=== PATIENT | male | born 1950 | race Caucasian/White ===

== ENCOUNTER 2016-02-23 17:40 | Inpatient (IN) | payer OTHER ==
[~2016-02-23] VITALS: Wt 163.7 kg
[2016-02-23 18:57] LABS: HEMATOCRIT 31.5 % (38.0-50.0); MCH 26.4 PG (29.0-34.0); MCHC 30.2 G/DL (30.0-36.0); MCV 87.5 FL (86-99); MEAN PLAT.VOLUME 8.1 uM^3 (9.0-12.4); PLATELET COUNT 79 K/uL (156-360); RBC DIS.WIDTH-CV 16.3 % (11.8-14.6); RBC DIS.WIDTH-SD 51.4 % (39-53)
[2016-02-23 19:04] LABS: WHITE BLOOD COUNT 5.6 K/uL (4.1-10.2)
[2016-02-23 19:09] LABS: CHLORIDE 113 mEq/L (99-109); POTASSIUM 3.7 mEq/L (3.7-5.4); SODIUM 148 mEq/L (136-147)
[2016-02-23 19:11] LABS: GLUCOSE 100 mg/dL (70-99)
[2016-02-23 19:12] LABS: ANION GAP 9 MEQ/L (2-14)
[2016-02-23 19:13] LABS: TOTAL BILIRUBIN 0.3 mg/dL (0.0-1.0)
[2016-02-23 19:14] LABS: ALKALINE PHOSPHATASE 56 IU/L (3-129)
[2016-02-23 19:15] LABS: GFR ESTIMATE (CALCULATED) 43 mL/min/
[2016-02-23 19:16] LABS: UREA NITROGEN (BUN) 28 mg/dL (9-23)
[2016-02-23 19:18] LABS: TROP-I INTERPRETATION NEGATIVE; TROPONIN-I 0.18 ng/mL (0.0-0.30)
[2016-02-23 19:28] LABS: BASOPHIL COUNT 0.1 K/uL (0-0.1); EOSINOPHIL (%) 5.7 % (0-5); EOSINOPHIL COUNT 0.3 K/uL (0-0.3); IMMATURE GRANULOCYTE (%) 0.4 % (0.0-0.7); IMMATURE GRANULOCYTE COUNT 0.2 K/uL; LYMPHOCYTE COUNT 1.6 K/uL (1.0-2.8); MONOCYTE (%) 7.5 % (3-12); MONOCYTE COUNT 0.4 K/uL (0-0.8); NEUTROPHIL (%) 56.9 % (45-76); NEUTROPHIL COUNT 3.2 K/uL (1.8-6.4)
[2016-02-23 21:45] LABS: ADD MIUA? YES; BILIRUBIN SMALL; BLOOD NEGATIVE; COLOR YELLOW ((YELLOW)); GLUCOSE (STRIP) NEGATIVE; KETONES NEGATIVE; LEUKOCYTES NEGATIVE; NITRITE NEGATIVE; PROTEIN (STRIP) 100; SPECIFIC GRAVITY 1.018 (1.000-1.030); UROBILINOGEN 0.2 MG/DL (0.2-1.0)
[2016-02-23 22:34] LABS: C-REACTIVE PROTEIN 72.1 MG/L (0-10)
[2016-02-23 22:36] LABS: AMORPHOUS PHOSPHATE CRYSTALS 4+; BACTERIA 3+; CASTS NONE SEEN /LPF; CRYSTALS PRESENT; EPITHELIAL CELLS RARE; MUCUS NONE SEEN; RED BLOOD CELLS 0-5 /HPF (0-5); UCUL ADDED? NO; WHITE BLOOD CELLS 0-5 /HPF (0-5)
[2016-02-23] MEDS ORDERED: ATORVASTATIN CA40 MG PO (22:57)
[2016-02-23] MEDS ORDERED: ACIDOPHILUS1 EAC5 PO (22:57)
[2016-02-23] MEDS ORDERED: ERGOCALCIF50000 UNIT PO (22:58)
[2016-02-23] MEDS ORDERED: FISH OIL 1,0001 EAC7 PO (22:59)
[2016-02-23] MEDS ORDERED: FLUOXETINE HCL20 M1 PO (22:59)
[2016-02-23] MEDS ORDERED: CRANBERRY 4001 EAC1 PO (22:59)
[2016-02-23] MEDS ORDERED: FERROUS GLUCON324 MG PO (22:59)
[2016-02-23] MEDS ORDERED: LANTUS 3 M100 UNITS1 SC (23:00)
[2016-02-23] MEDS ORDERED: GENTIAN VIOLET TP (23:00)
[2016-02-23] MEDS ORDERED: LOSARTAN POTAS100 MG PO (23:01)
[2016-02-23] MEDS ORDERED: LATANOPROST2.5 ML BOTH EYES (23:01)
[2016-02-23] MEDS ORDERED: ONE-A-DAY ESSE1 EAC1 PO (23:01)
[2016-02-23] MEDS ORDERED: NORVASC10 MG PO (23:02)
[2016-02-23] MEDS ORDERED: SENNA PLUS TAB1 EACH PO (23:02)
[2016-02-23] MEDS ORDERED: B COMPLETE1 EACH PO (23:02)
[2016-02-23] MEDS ORDERED: ZINC SULFATE220 M1 PO (23:02)
[2016-02-23] MEDS ORDERED: PROTONIX40 MG PO (23:02)
[2016-02-23] MEDS ORDERED: FERROUS SULFAT325 MG PO (23:03)
[2016-02-23] MEDS ORDERED: LASIX40 MG PO (23:03)
[2016-02-23] MEDS ORDERED: CARVEDILOL12.5 MG PO (23:03)
[2016-02-23] MEDS ORDERED: HYDRALAZINE HC100 MG PO (23:04)
[2016-02-23] MEDS ORDERED: DAIRY RELIE3000 UNIT PO (23:04)
[2016-02-23] MEDS ORDERED: TRAMADOL HCL50 MG PO (23:05)
[2016-02-23] MEDS ORDERED: LYRICA100 MG PO (23:05)
[2016-02-23] MEDS ORDERED: BENADRYL25 MG PO (23:05)
[2016-02-23] MEDS ORDERED: NOVOLOG PE100 UNITS/ SC (23:05)
[2016-02-23] MEDS ORDERED: HYDROXYZINE PAM25 MG PO (23:06)
[2016-02-23] MEDS ORDERED: DULCOLAX10 MG PR (23:06)
[2016-02-23] MEDS ORDERED: FLONASE16 G1 BOTH NARES (23:06)
[2016-02-23] MEDS ORDERED: FLEET ENEMA-AD118 ML PR (23:06)
[2016-02-23] MEDS ORDERED: PHILLIPS'400 MG/5 M PO (23:07)
[2016-02-23] MEDS ORDERED: NITROSTAT0.4 MG SL (23:07)
[2016-02-23] MEDS ORDERED: ZOFRAN4 MG PO (23:09)
[2016-02-23] MEDS ORDERED: TYLENOL REGULA325 MG PO (23:09)
[2016-02-24 08:49] LABS: ANION GAP 8 MEQ/L (2-14); CHLORIDE 114 MEQ/L (99-109); GFR ESTIMATE (CALCULATED) 40 mL/min/; GLUCOSE 103 mg/dL (70-99); POTASSIUM 3.6 MEQ/L (3.7-5.4); SAMPLE HEMOLYSIS CHECK 0; SAMPLE ICTERIC CHECK 0; SAMPLE LIPEMIA CHECK 0; SODIUM 150 MEQ/L (136-147); UREA NITROGEN (BUN) 30 mg/dL (9-23)
[2016-02-24 12:10] LABS: TROP-I INTERPRETATION NEGATIVE; TROPONIN-I 0.29 ng/mL (0.0-0.30)
[2016-02-24 17:24] VITALS: BP 142/66
[2016-02-24 20:29] VITALS: BP 183/84
[2016-02-24 21:49] LABS: METH RESISTANT S AUREUS PCR POSITIVE (NEGATIVE)
[2016-02-24 22:11] LABS: PROBE CHECK PASS
[2016-02-24 22:16] LABS: POINT-OF-CARE METER ID UU14149397
[2016-02-25 00:04] VITALS: BP 152/70
[2016-02-25 04:15] VITALS: BP 148/72
[2016-02-25 07:02] LABS: HEMATOCRIT 31.2 % (38.0-50.0); MCH 26.6 PG (29.0-34.0); MCHC 30.1 G/DL (30.0-36.0); MCV 88.1 FL (86-99); MEAN PLAT.VOLUME 8.7 uM^3 (9.0-12.4); PLATELET COUNT 64 K/uL (156-360); RBC DIS.WIDTH-CV 16.4 % (11.8-14.6); RBC DIS.WIDTH-SD 52.9 % (39-53); RED BLOOD COUNT 3.54 M/uL (4.00-5.50)
[2016-02-25 07:15] LABS: WHITE BLOOD COUNT 7.8 K/uL (4.1-10.2)
[2016-02-25 07:18] LABS: ALKALINE PHOSPHATASE 54 IU/L (3-129); ANION GAP 8 MEQ/L (2-14); CHLORIDE 110 MEQ/L (99-109); GFR ESTIMATE (CALCULATED) 36 mL/min/; GLUCOSE 134 mg/dL (70-99); SAMPLE HEMOLYSIS CHECK 0; SAMPLE ICTERIC CHECK 0; SAMPLE LIPEMIA CHECK 0; SODIUM 144 MEQ/L (136-147); TOTAL BILIRUBIN 0.3 MG/DL (0.0-1.0); UREA NITROGEN (BUN) 32 mg/dL (9-23)
[2016-02-25 07:48] LABS: POINT-OF-CARE METER ID UU14149397
[2016-02-25 08:18] VITALS: BP 100/40
[2016-02-25 11:30] VITALS: BP 130/40
[2016-02-25 11:31] LABS: POINT-OF-CARE METER ID UU14149397
[2016-02-25 15:30] VITALS: BP 100/50
[2016-02-25 15:49] LABS: POINT-OF-CARE METER ID UU14149397
[2016-02-25 20:18] VITALS: BP 147/68
[2016-02-26] VITALS (7 sets, daily range): BP systolic 100–170; BP diastolic 50–74
[2016-02-27 03:43] VITALS: BP 141/70
[2016-02-27 05:49] LABS: HEMATOCRIT 25.1 % (38.0-50.0); MCH 26.7 PG (29.0-34.0); MCHC 31.1 G/DL (30.0-36.0); MEAN PLAT.VOLUME 8.8 uM^3 (9.0-12.4); PLATELET COUNT 62 K/uL (156-360); RBC DIS.WIDTH-CV 16.1 % (11.8-14.6); RBC DIS.WIDTH-SD 50.3 % (39-53); RED BLOOD COUNT 2.92 M/uL (4.00-5.50)
[2016-02-27 05:50] LABS: WHITE BLOOD COUNT 4.5 K/uL (4.1-10.2)
[2016-02-27 06:01] LABS: ANION GAP 6 MEQ/L (2-14); CHLORIDE 113 MEQ/L (99-109); GFR ESTIMATE (CALCULATED) 43 mL/min/; GLUCOSE 160 mg/dL (70-99); POTASSIUM 3.8 MEQ/L (3.7-5.4); SAMPLE HEMOLYSIS CHECK 0; SAMPLE ICTERIC CHECK 0; SAMPLE LIPEMIA CHECK 0; SODIUM 147 MEQ/L (136-147); UREA NITROGEN (BUN) 32 mg/dL (9-23)
[2016-02-27 07:37] VITALS: BP 142/68
[2016-02-27 11:50] VITALS: BP 142/95
[2016-02-27 14:10] LABS: UR CREATININE CONCENTRATION 64.1 MG/DL
[2016-02-27 16:24] VITALS: BP 159/72
[2016-02-27 19:41] VITALS: BP 170/79
[2016-02-27 21:39] LABS: POINT-OF-CARE METER ID UU14149397
[2016-02-27 23:59] VITALS: BP 172/84
[2016-02-28 03:55] VITALS: BP 150/69
[2016-02-28 06:17] LABS: EOSINOPHIL (%) 16.6 % (0-5); HEMATOCRIT 28.2 % (38.0-50.0); IMMATURE GRANULOCYTE COUNT 0.1 K/uL; LYMPHOCYTE COUNT 1.2 K/uL (1.0-2.8); MCH 26.9 PG (29.0-34.0); MCHC 31.2 G/DL (30.0-36.0); MCV 86.2 FL (86-99); MEAN PLAT.VOLUME 8.5 uM^3 (9.0-12.4); MONOCYTE (%) 9.2 % (3-12); MONOCYTE COUNT 0.5 K/uL (0-0.8); NEUTROPHIL (%) 51.7 % (45-76); RBC DIS.WIDTH-CV 16.5 % (11.8-14.6); RBC DIS.WIDTH-SD 51.1 % (39-53); RED BLOOD COUNT 3.27 M/uL (4.00-5.50)
[2016-02-28 06:22] LABS: PLATELET COUNT 95 K/uL (156-360); WHITE BLOOD COUNT 5.9 K/uL (4.1-10.2)
[2016-02-28 06:34] LABS: POINT-OF-CARE METER ID UU14149397
[2016-02-28 06:46] LABS: ALKALINE PHOSPHATASE 63 IU/L (3-129); ANION GAP 6 MEQ/L (2-14); CHLORIDE 111 MEQ/L (99-109); GFR ESTIMATE (CALCULATED) 59 mL/min/; MAGNESIUM 1.8 mg/dl (1.3-2.7); POTASSIUM 3.5 MEQ/L (3.7-5.4); SAMPLE HEMOLYSIS CHECK 0; SAMPLE ICTERIC CHECK 0; SAMPLE LIPEMIA CHECK 0; SODIUM 147 MEQ/L (136-147); TOTAL BILIRUBIN 0.3 MG/DL (0.0-1.0); UREA NITROGEN (BUN) 24 mg/dL (9-23); URIC ACID 6.1 mg/dL (3.1-9.2)
[2016-02-28 06:50] LABS: GLUCOSE 104 mg/dL (70-99)
[2016-02-28 07:34] VITALS: BP 193/86
[2016-02-28 07:37] LABS: HEMATOLOGY COMMENT 1 SMEAR COMPATIBLE
[2016-02-28 07:43] VITALS: BP 184/80
[2016-02-28 17:15] VITALS: BP 162/82
[2016-02-28 21:27] LABS: POINT-OF-CARE METER ID UU14149397
[2016-02-28 23:48] VITALS: BP 173/84
[2016-02-29 06:34] LABS: POINT-OF-CARE METER ID UU14149397
[2016-02-29 07:00] VITALS: BP 167/68
[2016-02-29 07:12] LABS: ANION GAP 9 MEQ/L (2-14); CHLORIDE 111 MEQ/L (99-109); GFR ESTIMATE (CALCULATED) > 59 mL/min/; GLUCOSE 78 mg/dL (70-99); MAGNESIUM 1.7 mg/dl (1.3-2.7); POTASSIUM 3.7 MEQ/L (3.7-5.4); SAMPLE HEMOLYSIS CHECK 0; SAMPLE ICTERIC CHECK 0; SAMPLE LIPEMIA CHECK 0; SODIUM 148 MEQ/L (136-147); UREA NITROGEN (BUN) 19 mg/dL (9-23)
[2016-02-29 08:34] LABS: EOSINOPHIL (%) 13.5 % (0-5); EOSINOPHIL COUNT 1.1 K/uL (0-0.3); HEMATOCRIT 27.8 % (38.0-50.0); IMMATURE GRANULOCYTE (%) 2.7 % (0.0-0.7); IMMATURE GRANULOCYTE COUNT 0.2 K/uL; LYMPHOCYTE COUNT 1.6 K/uL (1.0-2.8); MCH 25.8 PG (29.0-34.0); MCHC 30.6 G/DL (30.0-36.0); MCV 84.5 FL (86-99); MEAN PLAT.VOLUME 8.3 uM^3 (9.0-12.4); MONOCYTE (%) 9.4 % (3-12); MONOCYTE COUNT 0.7 K/uL (0-0.8); NEUTROPHIL (%) 53.7 % (45-76); NEUTROPHIL COUNT 4.2 K/uL (1.8-6.4); PLATELET COUNT 92 K/uL (156-360); RBC DIS.WIDTH-CV 16.5 % (11.8-14.6); RBC DIS.WIDTH-SD 50.1 % (39-53); RED BLOOD COUNT 3.29 M/uL (4.00-5.50)
[2016-02-29 08:37] LABS: WHITE BLOOD COUNT 7.8 K/uL (4.1-10.2)
[2016-02-29 09:11] LABS: HEMATOLOGY COMMENT 1 SMEAR COMPATIBLE; USER ID STC
[2016-02-29 15:29] VITALS: BP 171/77
[2016-02-29 17:00] LABS: POINT-OF-CARE METER ID UU14149397
[2016-02-29 22:37] LABS: POINT-OF-CARE METER ID UU14149397
[2016-03-01 00:06] VITALS: BP 127/80
[2016-03-01 06:46] LABS: HEMATOCRIT 27.3 % (38.0-50.0); MCH 26.2 PG (29.0-34.0); MCHC 31.5 G/DL (30.0-36.0); MCV 83.2 FL (86-99); RBC DIS.WIDTH-SD 46.3 % (39-53); RED BLOOD COUNT 3.28 M/uL (4.00-5.50); WHITE BLOOD COUNT 7.4 K/uL (4.1-10.2)
[2016-03-01 06:49] LABS: MEAN PLAT.VOLUME 8.3 uM^3 (9.0-12.4)
[2016-03-01 06:55] LABS: PLATELET COUNT 138 K/uL (156-360)
[2016-03-01 07:06] LABS: POINT-OF-CARE METER ID UU14149397
[2016-03-01 07:37] VITALS: BP 137/80
[2016-03-01 07:45] LABS: ANION GAP 11 MEQ/L (2-14); CHLORIDE 107 MEQ/L (99-109); EOSINOPHIL (%) 14.9 % (0-5); EOSINOPHIL COUNT 1.1 K/uL (0-0.3); GFR ESTIMATE (CALCULATED) > 59 mL/min/; GLUCOSE 96 mg/dL (70-99); IMMATURE GRANULOCYTE (%) 2.3 % (0.0-0.7); IMMATURE GRANULOCYTE COUNT 1.7 K/uL; LYMPHOCYTE COUNT 1.4 K/uL (1.0-2.8); MONOCYTE (%) 9.5 % (3-12); MONOCYTE COUNT 0.7 K/uL (0-0.8); NEUTROPHIL (%) 53.4 % (45-76); NEUTROPHIL COUNT 3.9 K/uL (1.8-6.4); POTASSIUM 3.5 MEQ/L (3.7-5.4); SAMPLE HEMOLYSIS CHECK 0; SAMPLE ICTERIC CHECK 0; SAMPLE LIPEMIA CHECK 0; SODIUM 148 MEQ/L (136-147); UREA NITROGEN (BUN) 17 mg/dL (9-23)
[2016-03-01 08:44] LABS: HEMATOLOGY COMMENT 1 SMEAR COMPATIBLE; USER ID STC
[2016-03-01 12:35] VITALS: BP 196/95
[2016-03-01 16:06] VITALS: BP 160/80
[2016-03-01 22:14] LABS: POINT-OF-CARE METER ID UU14149397
[2016-03-01 23:35] VITALS: BP 188/81
[2016-03-02 06:32] LABS: ANION GAP 3 MEQ/L (2-14); CHLORIDE 107 MEQ/L (99-109); GFR ESTIMATE (CALCULATED) > 59 mL/min/; GLUCOSE 92 mg/dL (70-99); POTASSIUM 3.7 MEQ/L (3.7-5.4); SAMPLE HEMOLYSIS CHECK 0; SAMPLE ICTERIC CHECK 0; SAMPLE LIPEMIA CHECK 0; SODIUM 145 MEQ/L (136-147); UREA NITROGEN (BUN) 15 mg/dL (9-23)
[2016-03-02 07:07] LABS: POINT-OF-CARE METER ID UU14149397
[2016-03-02 11:44] LABS: POINT-OF-CARE METER ID UU14149397
[2016-03-02 15:56] VITALS: BP 143/67
[2016-03-02 16:12] LABS: POINT-OF-CARE METER ID UU14149397
[2016-03-02 23:49] VITALS: BP 120/59
[2016-03-03 04:17] VITALS: BP 129/68
[2016-03-03 07:56] VITALS: BP 177/74
[2016-03-03] MEDS ORDERED: DOXYCYCLINE HY100 M3 PO (08:13)
[2016-03-03] MEDS ORDERED: LOSARTAN POTASS25 MG PO (08:13)
[2016-03-03] MEDS ORDERED: CARVEDILOL25 MG PO (08:13)
[2016-03-03] MEDS ORDERED: FUROSEMIDE20 MG PO (08:13)
[2016-03-03 12:09] LABS: POINT-OF-CARE METER ID UU14149397
[2016-03-03 16:01] LABS: POINT-OF-CARE METER ID UU14149397
== END 2016-03-03 16:38 | DRG 602 ==
LOC: EME 17:40 → EDOF 22:52 → 3EAST 22:52 → EDOF 02-24 10:49 → 3EAST 02-24 17:14
PROVIDERS: Emergency Medicine; Internal Medicine; Internal Medicine Nephrology
DX: L03.116 Cellulitis of left lower limb (principal); N17.0 Acute kidney failure with tubular necrosis; L89.312 Pressure ulcer of right buttock, stage 2; L89.322 Pressure ulcer of left buttock, stage 2; L89.623 Pressure ulcer of left heel, stage 3; E11.22 Type 2 diabetes mellitus with diabetic chronic kidney disease; D69.6 Thrombocytopenia, unspecified; E11.42 Type 2 diabetes mellitus with diabetic polyneuropathy; E66.01 Morbid (severe) obesity due to excess calories; I12.9 Hypertensive chronic kidney disease with stage 1 through stage 4 chronic kidney disease, or unspecified chronic kidney disease; I89.0 Lymphedema, not elsewhere classified; R41.82 Altered mental status, unspecified; I89.8 Other specified noninfective disorders of lymphatic vessels and lymph nodes; I87.2 Venous insufficiency (chronic) (peripheral); B95.62 Methicillin resistant Staphylococcus aureus infection as the cause of diseases classified elsewhere; B96.89 Other specified bacterial agents as the cause of diseases classified elsewhere; K21.9 Gastro-esophageal reflux disease without esophagitis; M86.672 Other chronic osteomyelitis, left ankle and foot; Z89.422 Acquired absence of other left toe(s); E78.5 Hyperlipidemia, unspecified; N18.3 Chronic kidney disease, stage 3 (moderate); D36.7 Benign neoplasm of other specified sites; D64.9 Anemia, unspecified; Z87.891 Personal history of nicotine dependence; Z68.42 Body mass index [BMI] 45.0-49.9, adult; H40.9 Unspecified glaucoma; J30.9 Allergic rhinitis, unspecified; F60.3 Borderline personality disorder; R80.9 Proteinuria, unspecified; N28.1 Cyst of kidney, acquired; B99.8 Other infectious disease
CPT/HCPCS: 70450; 71010; 76770; 80048; 80053; 80202; 81003; 82565; 82570; 82948; 83605; 83735; 83880; 84100; 84156; 84484; 84550; 85025; 85025 91; 85027; 85651; 86140; 87040; 87070; 87075; 87077; 87106; 87147; 87186; 87205; 87641; 93005; 94799; 99281; 99285; J1650; J1815; J1940; J2543; J3370; J7030; J7050

== ENCOUNTER 2016-04-09 13:40 | Inpatient (IN) | payer OTHER ==
[~2016-04-09] VITALS: Ht 188 cm; Wt 164.0 kg
[~2016-04-09 13:40] MED LIST: ACIDOPHILUS1 EAC5 PO; ATORVASTATIN CA40 MG PO; B COMPLETE1 EACH PO; BENADRYL25 MG PO; CARVEDILOL12.5 MG PO; CARVEDILOL25 MG PO; CRANBERRY 4001 EAC1 PO; DAIRY RELIE3000 UNIT PO; DOXYCYCLINE HY100 M3 PO; DULCOLAX10 MG PR; ERGOCALCIF50000 UNIT PO; FERROUS GLUCON324 MG PO; FERROUS SULFAT325 MG PO; FISH OIL 1,0001 EAC7 PO; FLEET ENEMA-AD118 ML PR; FLONASE16 G1 BOTH NARES; FLUOXETINE HCL20 M1 PO; FUROSEMIDE20 MG PO; GENTIAN VIOLET TP; HYDRALAZINE HC100 MG PO; HYDROXYZINE PAM25 MG PO; LANTUS 3 M100 UNITS1 SC; LASIX40 MG PO; LATANOPROST2.5 ML BOTH EYES; LOSARTAN POTAS100 MG PO; LOSARTAN POTASS25 MG PO; LYRICA100 MG PO; NITROSTAT0.4 MG SL; NORVASC10 MG PO; NOVOLOG PE100 UNITS/ SC; ONE-A-DAY ESSE1 EAC1 PO; PHILLIPS'400 MG/5 M PO; PROTONIX40 MG PO; SENNA PLUS TAB1 EACH PO; TRAMADOL HCL50 MG PO; TYLENOL REGULA325 MG PO; ZINC SULFATE220 M1 PO; ZOFRAN4 MG PO
[2016-04-09 14:53] LABS: HEMATOCRIT 24.5 % (38.0-50.0); MCH 25.8 PG (29.0-34.0); MCV 83.1 FL (86-99); MEAN PLAT.VOLUME 8.1 uM^3 (9.0-12.4); PLATELET COUNT 134 K/uL (156-360); RBC DIS.WIDTH-CV 16.7 % (11.8-14.6); RBC DIS.WIDTH-SD 48.6 % (39-53); RED BLOOD COUNT 2.95 M/uL (4.00-5.50); WHITE BLOOD COUNT 7.5 K/uL (4.1-10.2)
[2016-04-09 15:02] LABS: CHLORIDE 108 mEq/L (99-109); POTASSIUM 4.7 mEq/L (3.7-5.4); SODIUM 143 mEq/L (136-147)
[2016-04-09 15:03] LABS: GLUCOSE 242 mg/dL (70-99)
[2016-04-09 15:05] LABS: ANION GAP 8 MEQ/L (2-14)
[2016-04-09 15:07] LABS: GFR ESTIMATE (CALCULATED) 34 mL/min/
[2016-04-09 15:08] LABS: D-DIMER ELISA 1.44 mg/L FEU (< 0.57); INTER. NORMALIZED RATIO 1.2; PTT 44.1 (25-32); UREA NITROGEN (BUN) 31 mg/dL (9-23)
[2016-04-09 15:14] LABS: TROP-I INTERPRETATION NEGATIVE; TROPONIN-I 0.01 ng/mL (0.0-0.30)
[2016-04-09] MEDS ORDERED: DOMEBORO TP (16:47)
[2016-04-09] MEDS ORDERED: FISH OIL 1,0001 EA11 PO (16:47)
[2016-04-09] MEDS ORDERED: LOSARTAN POTASS25 MG PO (16:50)
[2016-04-09] MEDS ORDERED: NORVASC10 MG PO (16:51)
[2016-04-09] MEDS ORDERED: OMEPRAZOLE20 M2 PO (16:52)
[2016-04-09] MEDS ORDERED: HEP LOCK F IV (17:03)
[2016-04-09] MEDS ORDERED: LASIX20 MG PO (17:04)
[2016-04-09] MEDS ORDERED: MUCINEX DM ER1 EACH PO (17:06)
[2016-04-09] MEDS ORDERED: SALINE FLUSH 5 M5 ML IV (17:09)
[2016-04-09] MEDS ORDERED: LYRICA100 MG PO (17:10)
[2016-04-09] MEDS ORDERED: DAIRY RELIE3000 UNIT PO (17:10)
[2016-04-09] MEDS ORDERED: GLUCAGON1 MG IM (17:15)
[2016-04-09] MEDS ORDERED: GLUTOSE 1537.5 GM PO (17:16)
[2016-04-09] MEDS ORDERED: HYDROXYZINE HCL25 MG PO (17:16)
[2016-04-09] MEDS ORDERED: MILK OF MAGN PO (17:17)
[2016-04-09] MEDS ORDERED: NITROSTAT0.4 MG SL (17:17)
[2016-04-09] MEDS ORDERED: NORCO 5/3251 TABLET PO (17:18)
[2016-04-09] MEDS ORDERED: ROBITUSSIN DM118 ML PO (17:18)
[2016-04-09 20:12] VITALS: BP 160/74
[2016-04-10] VITALS (11 sets, daily range): BP systolic 108–175; BP diastolic 58–77
[2016-04-10 07:45] LABS: POINT-OF-CARE METER ID UU13113781
[2016-04-10 08:23] LABS: HEMATOCRIT 29.3 % (38.0-50.0); MCH 25.6 PG (29.0-34.0); MCHC 31.1 G/DL (30.0-36.0); MCV 82.3 FL (86-99); MEAN PLAT.VOLUME 8.3 uM^3 (9.0-12.4); PLATELET COUNT 118 K/uL (156-360); RBC DIS.WIDTH-CV 16.5 % (11.8-14.6); RBC DIS.WIDTH-SD 49.6 % (39-53); WHITE BLOOD COUNT 7.6 K/uL (4.1-10.2)
[2016-04-10 08:24] LABS: RED BLOOD COUNT 3.56 M/uL (4.00-5.50)
[2016-04-10 08:47] LABS: ALKALINE PHOSPHATASE 63 IU/L (3-129); ANION GAP 9 MEQ/L (2-14); CHLORIDE 108 MEQ/L (99-109); GFR ESTIMATE (CALCULATED) 40 mL/min/; GLUCOSE 149 mg/dL (70-99); POTASSIUM 4.6 MEQ/L (3.7-5.4); SAMPLE HEMOLYSIS CHECK 0; SAMPLE ICTERIC CHECK 0; SAMPLE LIPEMIA CHECK 0; SODIUM 146 MEQ/L (136-147); UREA NITROGEN (BUN) 28 mg/dL (9-23)
[2016-04-10 08:51] LABS: TOTAL BILIRUBIN 0.5 MG/DL (0.0-1.0)
[2016-04-10 10:03] LABS: METH RESISTANT S AUREUS PCR NEGATIVE (NEGATIVE)
[2016-04-10 10:06] LABS: PROBE CHECK PASS; SPECIMEN PROCESSING CONTROL PASS
[2016-04-10 11:39] LABS: POINT-OF-CARE METER ID UU13113781
[2016-04-10 16:44] LABS: POINT-OF-CARE METER ID UU14174216
[2016-04-10 21:12] LABS: POINT-OF-CARE METER ID UU13113781
[2016-04-11 03:48] VITALS: BP 156/77
[2016-04-11 06:54] LABS: MCH 25.1 PG (29.0-34.0); MCHC 30.7 G/DL (30.0-36.0); MCV 81.9 FL (86-99); MEAN PLAT.VOLUME 8.4 uM^3 (9.0-12.4); PLATELET COUNT 117 K/uL (156-360); RBC DIS.WIDTH-CV 16.7 % (11.8-14.6); RBC DIS.WIDTH-SD 50.1 % (39-53); RED BLOOD COUNT 3.54 M/uL (4.00-5.50)
[2016-04-11 07:29] LABS: ALKALINE PHOSPHATASE 59 IU/L (3-129); ANION GAP 11 MEQ/L (2-14); CHLORIDE 110 MEQ/L (99-109); GFR ESTIMATE (CALCULATED) 43 mL/min/; GLUCOSE 115 mg/dL (70-99); POTASSIUM 4.2 MEQ/L (3.7-5.4); SAMPLE HEMOLYSIS CHECK 0; SAMPLE ICTERIC CHECK 0; SAMPLE LIPEMIA CHECK 0; SODIUM 149 MEQ/L (136-147); TOTAL BILIRUBIN 0.4 MG/DL (0.0-1.0); UREA NITROGEN (BUN) 23 mg/dL (9-23)
[2016-04-11 17:00] VITALS: BP 129/80
[2016-04-11 20:00] VITALS: BP 172/76
[2016-04-12 03:35] VITALS: BP 166/73
[2016-04-12 07:14] VITALS: BP 134/60
[2016-04-12 07:22] LABS: HEMATOCRIT 26.9 % (38.0-50.0); MCH 25.8 PG (29.0-34.0); MCHC 31.2 G/DL (30.0-36.0); MCV 82.5 FL (86-99); MEAN PLAT.VOLUME 8.7 uM^3 (9.0-12.4); PLATELET COUNT 117 K/uL (156-360); RBC DIS.WIDTH-CV 16.9 % (11.8-14.6); RBC DIS.WIDTH-SD 51.6 % (39-53); RED BLOOD COUNT 3.26 M/uL (4.00-5.50); WHITE BLOOD COUNT 7.6 K/uL (4.1-10.2)
[2016-04-12 12:20] VITALS: BP 140/64
[2016-04-12 15:11] VITALS: BP 145/64
[2016-04-12 23:25] VITALS: BP 146/80
[2016-04-13] MEDS ORDERED: MERREM1 GM IV (08:15)
[2016-04-13 08:20] VITALS: BP 150/72
[2016-04-13 14:59] VITALS: BP 168/75
[2016-04-14 07:40] VITALS: BP 146/68
[2016-04-14 15:55] VITALS: BP 165/72
== END 2016-04-14 19:10 | disposition home or self-care (01) | DRG 871 ==
LOC: EME 13:40 → EDOF 19:00 → 4EAST 19:00 → 2EAST 04-11 16:38
PROVIDERS: Emergency Medicine; Internal Medicine
PROC: 30233N1 Transfusion of Nonautologous Red Blood Cells into Peripheral Vein, Percutaneous Approach (ICD-10-PCS; principal; 2016-04-10)
DX: A41.9 Sepsis, unspecified organism (principal); J18.9 Pneumonia, unspecified organism; L89.623 Pressure ulcer of left heel, stage 3; N17.9 Acute kidney failure, unspecified; K92.2 Gastrointestinal hemorrhage, unspecified; Z68.42 Body mass index [BMI] 45.0-49.9, adult; L97.829 Non-pressure chronic ulcer of other part of left lower leg with unspecified severity; L03.116 Cellulitis of left lower limb; E11.22 Type 2 diabetes mellitus with diabetic chronic kidney disease; D69.6 Thrombocytopenia, unspecified; I12.9 Hypertensive chronic kidney disease with stage 1 through stage 4 chronic kidney disease, or unspecified chronic kidney disease; N18.3 Chronic kidney disease, stage 3 (moderate); E66.01 Morbid (severe) obesity due to excess calories; K27.9 Peptic ulcer, site unspecified, unspecified as acute or chronic, without hemorrhage or perforation; E78.5 Hyperlipidemia, unspecified; D50.0 Iron deficiency anemia secondary to blood loss (chronic); I89.0 Lymphedema, not elsewhere classified; I83.12 Varicose veins of left lower extremity with inflammation; I83.11 Varicose veins of right lower extremity with inflammation; L30.9 Dermatitis, unspecified
CPT/HCPCS: 71020; 78582; 80048; 80053; 82565; 82948; 83605; 83880; 84484; 85027; 85379; 85610; 85730; 86850; 86900; 86901; 86920; 87040; 87077; 87186; 87641; 87801; 93005; 94640; 94640 76; 94799; 99202; 99281; 99285; A9567; C9113; J0692; J1815; J1956; J2185; J7050; P9016

== ENCOUNTER 2016-05-01 12:04 | Emergency (ER) | payer OTHER ==
[~2016-05-01] VITALS: Ht 185.4 cm; Wt 152.4 kg
[~2016-05-01 12:04] MED LIST changes: +DOMEBORO TP; +FISH OIL 1,0001 EA11 PO; +GLUCAGON1 MG IM; +GLUTOSE 1537.5 GM PO; +HEP LOCK F IV; +HYDROXYZINE HCL25 MG PO; +LASIX20 MG PO; +MERREM1 GM IV; +MILK OF MAGN PO; +MUCINEX DM ER1 EACH PO; +NORCO 5/3251 TABLET PO; +OMEPRAZOLE20 M2 PO; +ROBITUSSIN DM118 ML PO; +SALINE FLUSH 5 M5 ML IV
[2016-05-01 13:45] LABS: HEMATOCRIT 27.2 % (38.0-50.0); MCH 26.1 PG (29.0-34.0); MCHC 30.9 G/DL (30.0-36.0); MCV 84.5 FL (86-99); RBC DIS.WIDTH-CV 17.6 % (11.8-14.6); RBC DIS.WIDTH-SD 52.5 % (39-53); RED BLOOD COUNT 3.22 M/uL (4.00-5.50); WHITE BLOOD COUNT 6.3 K/uL (4.1-10.2)
[2016-05-01 13:59] LABS: CHLORIDE 110 mEq/L (99-109); POTASSIUM 3.9 mEq/L (3.7-5.4); SODIUM 144 mEq/L (136-147)
[2016-05-01 14:01] LABS: GLUCOSE 117 mg/dL (70-99)
[2016-05-01 14:02] LABS: ANION GAP 7 MEQ/L (2-14)
[2016-05-01 14:05] LABS: GFR ESTIMATE (CALCULATED) 59 mL/min/; UREA NITROGEN (BUN) 27 mg/dL (9-23)
[2016-05-01 14:09] LABS: TROP-I INTERPRETATION NEGATIVE; TROPONIN-I 0.01 ng/mL (0.0-0.30)
[2016-05-01 14:25] LABS: IMM.PLATELET FRACTION 0.9 (1-7); MEAN PLAT.VOLUME 9.5 uM^3 (9.0-12.4)
[2016-05-01 14:26] LABS: PLATELET COUNT 35 K/uL (156-360)
[2016-05-01 15:31] LABS: ADD MIUA? YES; BILIRUBIN NEGATIVE; BLOOD NEGATIVE; COLOR YELLOW ((YELLOW)); GLUCOSE (STRIP) NEGATIVE; KETONES NEGATIVE; LEUKOCYTES NEGATIVE; NITRITE NEGATIVE; PROTEIN (STRIP) 100; SPECIFIC GRAVITY 1.012 (1.000-1.030); UROBILINOGEN 0.2 MG/DL (0.2-1.0)
[2016-05-01 15:39] LABS: BACTERIA RARE /HPF; EPITHELIAL CELLS RARE /HPF; HYALINE CASTS 0-5 /LPF; MUCUS TRACE /LPF; UCUL ADDED? NO; WHITE BLOOD CELLS 0-5 /HPF (0-5)
[2016-05-01 17:01] VITALS: BP 123/94
== END 2016-05-01 17:11 ==
LOC: EME → EDBD 12:04 → EME 17:11
PROVIDERS: Emergency Medicine
DX: D64.9 Anemia, unspecified (principal); I89.0 Lymphedema, not elsewhere classified; D69.6 Thrombocytopenia, unspecified; E87.8 Other disorders of electrolyte and fluid balance, not elsewhere classified; E11.9 Type 2 diabetes mellitus without complications; E78.5 Hyperlipidemia, unspecified; I10 Essential (primary) hypertension; N18.4 Chronic kidney disease, stage 4 (severe); Z88.6 Allergy status to analgesic agent; Z88.2 Allergy status to sulfonamides
CPT/HCPCS: 71020; 80048; 81003; 83605; 84484; 85027; 87040; 93005; 99281; 99285

== ENCOUNTER 2016-05-11 14:37 | Inpatient (IN) | payer OTHER ==
[~2016-05-11] VITALS: Ht 188 cm; Wt 146.7 kg
[2016-05-11 15:50] LABS: BASOPHIL COUNT 0.1 K/uL (0-0.1); CHLORIDE 102 mEq/L (99-109); EOSINOPHIL (%) 10.8 % (0-5); EOSINOPHIL COUNT 1.8 K/uL (0-0.3); HEMATOCRIT 26.5 % (38.0-50.0); IMMATURE GRANULOCYTE (%) 0.7 % (0.0-0.7); IMMATURE GRANULOCYTE COUNT 0.1 K/uL; INSTRUMENT ABS NEUTROPHIL CT 12.3 K/uL; LYMPHOCYTE COUNT 1.7 K/uL (1.0-2.8); MCH 26.2 PG (29.0-34.0); MCHC 30.9 G/DL (30.0-36.0); MCV 84.7 FL (86-99); MEAN PLAT.VOLUME 8.6 uM^3 (9.0-12.4); MONOCYTE (%) 6.7 % (3-12); MONOCYTE COUNT 1.2 K/uL (0-0.8); NEUTROPHIL (%) 71.7 % (45-76); NEUTROPHIL COUNT 12.3 K/uL (1.8-6.4); PLATELET COUNT 90 K/uL (156-360); POTASSIUM 4.3 mEq/L (3.7-5.4); RBC DIS.WIDTH-CV 18.5 % (11.8-14.6); RBC DIS.WIDTH-SD 56.5 % (39-53); RED BLOOD COUNT 3.13 M/uL (4.00-5.50); SODIUM 138 mEq/L (136-147); WHITE BLOOD COUNT 17.1 K/uL (4.1-10.2)
[2016-05-11 15:54] LABS: ANION GAP 11 MEQ/L (2-14); TOTAL BILIRUBIN 0.3 mg/dL (0.0-1.0)
[2016-05-11 15:56] LABS: ALKALINE PHOSPHATASE 107 IU/L (3-129); GFR ESTIMATE (CALCULATED) 38 mL/min/
[2016-05-11 15:57] LABS: UREA NITROGEN (BUN) 40 mg/dL (9-23)
[2016-05-11 16:01] LABS: GLUCOSE 171 mg/dL (70-99)
[2016-05-11 16:04] LABS: ADD MIUA? YES; BILIRUBIN NEGATIVE; BLOOD LARGE; COLOR YELLOW ((YELLOW)); GLUCOSE (STRIP) NEGATIVE; KETONES NEGATIVE; LEUKOCYTES NEGATIVE; NITRITE NEGATIVE; PROTEIN (STRIP) NEGATIVE; SPECIFIC GRAVITY 1.006 (1.000-1.030); UROBILINOGEN 0.2 MG/DL (0.2-1.0)
[2016-05-11 16:05] LABS: TROP-I INTERPRETATION NEGATIVE; TROPONIN-I < 0.01 ng/mL (0.0-0.30)
[2016-05-11 16:28] LABS: UCUL ADDED? NO
[2016-05-11 16:34] LABS: BACTERIA NONE SEEN /HPF; EPITHELIAL CELLS RARE /HPF; HYALINE CASTS 0-5 /LPF; MUCUS TRACE /LPF; RED BLOOD CELLS 20-30 /HPF (0-5); WHITE BLOOD CELLS 0-5 /HPF (0-5)
[2016-05-11 16:53] LABS: INFLUENZA A VIRAL ANTIGEN NEGATIVE; INFLUENZA B VIRAL ANTIGEN NEGATIVE
[2016-05-11] MEDS ORDERED: ACIDOPHILUS100 M1 PO (17:28)
[2016-05-11] MEDS ORDERED: LAC-DOSE3000 UNIT PO (17:40)
[2016-05-11] MEDS ORDERED: LYRICA100 MG PO (17:41)
[2016-05-11] MEDS ORDERED: ATROVENT 00.5 MG/2.5 IH (17:44)
[2016-05-11] MEDS ORDERED: LASIX40 MG PO (17:45)
[2016-05-11] MEDS ORDERED: POTASSIUM CHLO20 ME1 PO (17:46)
[2016-05-11] MEDS ORDERED: GUAIFENESIN WI120 M1 PO (17:50)
[2016-05-11] MEDS ORDERED: ANTI-ITCH30 GM TP (17:53)
[2016-05-11 19:48] VITALS: BP 121/60
[2016-05-11 20:18] LABS: POINT-OF-CARE METER ID UU13113725
[2016-05-11 22:29] VITALS: BP 144/67
[2016-05-12 03:37] VITALS: BP 132/65
[2016-05-12 05:56] LABS: HEMATOCRIT 27.3 % (38.0-50.0); MCH 25.5 PG (29.0-34.0); MEAN PLAT.VOLUME 8.4 uM^3 (9.0-12.4); PLATELET COUNT 86 K/uL (156-360); RBC DIS.WIDTH-CV 18.6 % (11.8-14.6); RBC DIS.WIDTH-SD 57.2 % (39-53); RED BLOOD COUNT 3.21 M/uL (4.00-5.50); WHITE BLOOD COUNT 13.4 K/uL (4.1-10.2)
[2016-05-12 07:45] VITALS: BP 128/60
[2016-05-12 10:35] LABS: BASE EXCESS 5.9 mEq/L (-3 to +3); CARBOXY HGB 2.4 % (0-5); METHEMOGLOBIN 2.2 % (0-1.5); PCO2 64 mm Hg (35-45); PO2 53 mm Hg (80-100); pH 7.32 (7.35-7.45)
[2016-05-12 10:36] LABS: COMMENTS - BLOOD GASES NAC+; DEVICE NC; O2 FLOW 3 L/MIN; SITE RR; TOTAL RESP RATE 17 resp/min
[2016-05-12 15:00] VITALS: BP 131/72
[2016-05-12 16:29] LABS: POINT-OF-CARE METER ID UU13113725
[2016-05-12 19:08] VITALS: BP 128/61
[2016-05-12 20:38] LABS: POINT-OF-CARE METER ID UU13113725
[2016-05-12 22:50] VITALS: BP 132/73
[2016-05-13 02:57] VITALS: BP 126/66
[2016-05-13 05:48] LABS: POINT-OF-CARE METER ID UU13113725
[2016-05-13 06:24] LABS: ANION GAP 14 MEQ/L (2-14); CHLORIDE 101 MEQ/L (99-109); GFR ESTIMATE (CALCULATED) 38 mL/min/; GLUCOSE 238 mg/dL (70-99); SAMPLE HEMOLYSIS CHECK 0; SAMPLE ICTERIC CHECK 0; SAMPLE LIPEMIA CHECK 0; SODIUM 143 MEQ/L (136-147); UREA NITROGEN (BUN) 36 mg/dL (9-23)
[2016-05-13 07:27] VITALS: BP 140/67
[2016-05-13 11:22] LABS: POINT-OF-CARE METER ID UU13113725
[2016-05-13 11:44] VITALS: BP 137/67
[2016-05-13 15:21] VITALS: BP 146/70
[2016-05-13 19:08] VITALS: BP 134/63
[2016-05-13 23:55] VITALS: BP 130/68
[2016-05-14 08:48] VITALS: BP 138/70
[2016-05-14 17:47] VITALS: BP 140/68
[2016-05-14 18:51] VITALS: BP 141/78
[2016-05-14 20:49] LABS: POINT-OF-CARE METER ID UU13113725
[2016-05-14 23:18] VITALS: BP 132/61
[2016-05-15 03:04] VITALS: BP 116/54
[2016-05-15 05:55] LABS: POINT-OF-CARE METER ID UU13113725
[2016-05-15 08:31] VITALS: BP 153/70
[2016-05-15 11:36] LABS: POINT-OF-CARE METER ID UU13113725
[2016-05-15 12:00] VITALS: BP 144/67
[2016-05-15 16:35] VITALS: BP 143/67
[2016-05-15 18:45] VITALS: BP 140/65
[2016-05-15 20:35] LABS: POINT-OF-CARE METER ID UU13113725
[2016-05-16] VITALS (7 sets, daily range): BP systolic 126–157; BP diastolic 62–79
[2016-05-16 06:36] LABS: ALKALINE PHOSPHATASE 76 IU/L (3-129); ANION GAP 8 MEQ/L (2-14); CHLORIDE 98 MEQ/L (99-109); GFR ESTIMATE (CALCULATED) 50 mL/min/; GLUCOSE 175 mg/dL (70-99); SAMPLE HEMOLYSIS CHECK 0; SAMPLE ICTERIC CHECK 0; SAMPLE LIPEMIA CHECK 0; SODIUM 142 MEQ/L (136-147); TOTAL BILIRUBIN 0.4 MG/DL (0.0-1.0); UREA NITROGEN (BUN) 36 mg/dL (9-23)
[2016-05-16 07:42] LABS: HEMATOCRIT 29.7 % (38.0-50.0); MCH 25.5 PG (29.0-34.0); MCV 82.3 FL (86-99); MEAN PLAT.VOLUME 8.1 uM^3 (9.0-12.4); RBC DIS.WIDTH-CV 17.2 % (11.8-14.6); RED BLOOD COUNT 3.61 M/uL (4.00-5.50)
[2016-05-16 07:52] LABS: PLATELET COUNT 156 K/uL (156-360); WHITE BLOOD COUNT 9.1 K/uL (4.1-10.2)
[2016-05-16 11:46] LABS: POINT-OF-CARE METER ID UU13113725
[2016-05-17 02:59] VITALS: BP 164/75
[2016-05-17 07:37] VITALS: BP 160/70
[2016-05-17 11:40] LABS: POINT-OF-CARE METER ID UU13113725
[2016-05-17 12:00] VITALS: BP 153/71
[2016-05-17 16:00] VITALS: BP 148/72
[2016-05-17 16:45] LABS: POINT-OF-CARE METER ID UU13113725
[2016-05-17 19:26] VITALS: BP 162/61
[2016-05-17 22:43] VITALS: BP 150/71
[2016-05-18 03:45] VITALS: BP 140/76
[2016-05-18 05:40] LABS: POINT-OF-CARE METER ID UU13113725
[2016-05-18 07:33] VITALS: BP 142/66
[2016-05-18] MEDS ORDERED: PREDNISONE10 MG PO (13:02)
[2016-05-18] MEDS ORDERED: CEFTIN500 MG PO (13:04)
[2016-05-18] MEDS ORDERED: FUROSEMIDE20 MG PO (13:06)
== END 2016-05-18 15:07 | DRG 871 ==
LOC: EME 14:37 → 5EAST 17:39 → EDOF 17:39 → 5EAST 17:39
PROVIDERS: Emergency Medicine; Internal Medicine
DX: A41.9 Sepsis, unspecified organism (principal); J44.0 Chronic obstructive pulmonary disease with (acute) lower respiratory infection; J18.9 Pneumonia, unspecified organism; Y95 Nosocomial condition; I13.0 Hypertensive heart and chronic kidney disease with heart failure and stage 1 through stage 4 chronic kidney disease, or unspecified chronic kidney disease; I50.32 Chronic diastolic (congestive) heart failure; E11.22 Type 2 diabetes mellitus with diabetic chronic kidney disease; N18.3 Chronic kidney disease, stage 3 (moderate); I87.2 Venous insufficiency (chronic) (peripheral); L97.329 Non-pressure chronic ulcer of left ankle with unspecified severity; L89.620 Pressure ulcer of left heel, unstageable; E78.5 Hyperlipidemia, unspecified; D64.9 Anemia, unspecified; D69.6 Thrombocytopenia, unspecified; L22 Diaper dermatitis; K21.9 Gastro-esophageal reflux disease without esophagitis; L30.8 Other specified dermatitis; E66.01 Morbid (severe) obesity due to excess calories; E88.09 Other disorders of plasma-protein metabolism, not elsewhere classified; Z88.2 Allergy status to sulfonamides; Z88.1 Allergy status to other antibiotic agents; Z88.0 Allergy status to penicillin; Z68.41 Body mass index [BMI] 40.0-44.9, adult; Z87.891 Personal history of nicotine dependence; Z79.4 Long term (current) use of insulin
CPT/HCPCS: 36415; 36600; 71010; 71020; 71250; 80048; 80053; 81003; 82565; 82803; 82948; 83605; 84484; 84520; 85025; 85025 91; 85027; 87040; 87070; 87077; 87086; 87147; 87205; 87502; 93005; 94640; 94640 76; 94799; 99202; 99281; 99285; A6212; J0692; J1650; J1815; J2185; J2920; J2930; J7030; J7050; J7512

== ENCOUNTER 2016-07-16 16:44 | Inpatient (IN) | payer OTHER ==
[~2016-07-16] VITALS: Ht 185.4 cm; Wt 148.4 kg
[~2016-07-16 16:44] MED LIST changes: +ACIDOPHILUS100 M1 PO; +ANTI-ITCH30 GM TP; +ATROVENT 00.5 MG/2.5 IH; +CEFTIN500 MG PO; +GUAIFENESIN WI120 M1 PO; +LAC-DOSE3000 UNIT PO; +POTASSIUM CHLO20 ME1 PO; +PREDNISONE10 MG PO
[2016-07-16 17:18] LABS: BASE EXCESS 3.5 mEq/L (-3 to +3); BICARBONATE 29.5 mEq/L (22-26); CARBOXY HGB 2.4 % (0-5); METHEMOGLOBIN 0.6 % (0-1.5); PO2 62 mm Hg (80-100); pH 7.37 (7.35-7.45)
[2016-07-16 17:19] LABS: COMMENTS - BLOOD GASES C+A+; DEVICE NC; O2 FLOW 2.5 L/MIN; PCO2 51 mm Hg (35-45); SITE LR
[2016-07-16] MEDS ORDERED: LASIX40 MG PO (18:03)
[2016-07-16 18:04] LABS: MCH 26.1 PG (29.0-34.0); MCHC 30.4 G/DL (30.0-36.0); MCV 85.8 FL (86-99); MEAN PLAT.VOLUME 8.2 uM^3 (9.0-12.4); PLATELET COUNT 118 K/uL (156-360); RBC DIS.WIDTH-CV 16.5 % (11.8-14.6); RBC DIS.WIDTH-SD 51.6 % (39-53); RED BLOOD COUNT 3.03 M/uL (4.00-5.50)
[2016-07-16] MEDS ORDERED: CLARITIN,ALAVAR10 MG PO (18:04)
[2016-07-16] MEDS ORDERED: KLOR-CON M2020 MEQ PO (18:06)
[2016-07-16] MEDS ORDERED: TUMS500 MG PO (18:06)
[2016-07-16 18:09] LABS: CHLORIDE 107 mEq/L (99-109); POTASSIUM 4.4 mEq/L (3.7-5.4); SODIUM 142 mEq/L (136-147)
[2016-07-16] MEDS ORDERED: MELATONIN5 M1 PO (18:09)
[2016-07-16 18:11] LABS: GLUCOSE 162 mg/dL (70-99)
[2016-07-16 18:12] LABS: ANION GAP 11 MEQ/L (2-14)
[2016-07-16] MEDS ORDERED: NORCO 5/3251 TABLET PO (18:14)
[2016-07-16 18:15] LABS: GFR ESTIMATE (CALCULATED) 34 mL/min/
[2016-07-16 18:16] LABS: UREA NITROGEN (BUN) 36 mg/dL (9-23)
[2016-07-16] MEDS ORDERED: ROBITUSSIN DM118 ML PO (18:16)
[2016-07-16 18:21] LABS: TROP-I INTERPRETATION NEGATIVE; TROPONIN-I 0.02 ng/mL (0.0-0.30)
[2016-07-16 18:22] LABS: WHITE BLOOD COUNT 10.8 K/uL (4.1-10.2)
[2016-07-16 18:40] LABS: ADD MIUA? YES; BILIRUBIN NEGATIVE; BLOOD LARGE; COLOR AMBER ((YELLOW)); GLUCOSE (STRIP) NEGATIVE; KETONES NEGATIVE; LEUKOCYTES LARGE; NITRITE NEGATIVE; PROTEIN (STRIP) 100; SPECIFIC GRAVITY 1.015 (1.000-1.030)
[2016-07-16 18:47] LABS: BACTERIA 3+ /HPF; EPITHELIAL CELLS NONE SEEN /HPF; MUCUS NONE SEEN /LPF; RED BLOOD CELLS 30-40 /HPF (0-5); UCUL ADDED? YES; WHITE BLOOD CELLS TNTC /HPF (0-5); WHITE BLOOD CELLS CLUMP FEW /HPF (0-5)
[2016-07-16 18:48] LABS: GRANULAR CASTS 30-35 /LPF
[2016-07-16 19:00] VITALS: BP 88/41
[2016-07-16 19:25] LABS: EOSINOPHIL (%) 0.1 % (0-5); HEMATOLOGY COMMENT 1 SMEAR COMPATIBLE; IMMATURE GRANULOCYTE (%) 0.6 % (0.0-0.7); IMMATURE GRANULOCYTE COUNT 0.1 K/uL; INSTRUMENT ABS NEUTROPHIL CT 8.9 K/uL; LYMPHOCYTE COUNT 0.7 K/uL (1.0-2.8); MONOCYTE (%) 10.3 % (3-12); MONOCYTE COUNT 1.1 K/uL (0-0.8); NEUTROPHIL COUNT 8.9 K/uL (1.8-6.4); PLAT.SUFFICIENCY ADEQUATE
[2016-07-16 19:44] VITALS: BP 122/57
[2016-07-16 20:44] VITALS: BP 122/57
[2016-07-16 22:59] VITALS: BP 83/43
[2016-07-17] VITALS (14 sets, daily range): BP systolic 57–162; BP diastolic 51–77
[2016-07-17 00:01] LABS: POINT-OF-CARE METER ID UU13113725
[2016-07-17 06:24] LABS: POINT-OF-CARE METER ID UU13113725
[2016-07-17 07:29] LABS: EOSINOPHIL (%) 0.1 % (0-5); HEMATOCRIT 26.5 % (38.0-50.0); IMMATURE GRANULOCYTE COUNT 0.1 K/uL; INSTRUMENT ABS NEUTROPHIL CT 7.9 K/uL; LYMPHOCYTE COUNT 0.8 K/uL (1.0-2.8); MCH 25.8 PG (29.0-34.0); MCHC 29.8 G/DL (30.0-36.0); MCV 86.6 FL (86-99); MEAN PLAT.VOLUME 8.5 uM^3 (9.0-12.4); MONOCYTE (%) 2.3 % (3-12); MONOCYTE COUNT 0.2 K/uL (0-0.8); NEUTROPHIL (%) 87.2 % (45-76); NEUTROPHIL COUNT 7.9 K/uL (1.8-6.4); PLATELET COUNT 143 K/uL (156-360); RBC DIS.WIDTH-CV 16.5 % (11.8-14.6); RBC DIS.WIDTH-SD 52.3 % (39-53); RED BLOOD COUNT 3.06 M/uL (4.00-5.50); WHITE BLOOD COUNT 9.1 K/uL (4.1-10.2)
[2016-07-17 07:58] LABS: ANION GAP 11 MEQ/L (2-14); CHLORIDE 106 MEQ/L (99-109); GFR ESTIMATE (CALCULATED) 32 mL/min/; GLUCOSE 217 mg/dL (70-99); POTASSIUM 4.7 MEQ/L (3.7-5.4); SAMPLE HEMOLYSIS CHECK 0; SAMPLE ICTERIC CHECK 0; SAMPLE LIPEMIA CHECK 0; SODIUM 142 MEQ/L (136-147); UREA NITROGEN (BUN) 45 mg/dL (9-23)
[2016-07-17 11:46] LABS: POINT-OF-CARE METER ID UU13113725
[2016-07-17 16:43] LABS: POINT-OF-CARE METER ID UU13113725
[2016-07-17 21:11] LABS: POINT-OF-CARE METER ID UU13113725
[2016-07-18] VITALS (7 sets, daily range): BP systolic 91–140; BP diastolic 57–78
[2016-07-18 06:21] LABS: EOSINOPHIL (%) 0 % (0-5); HEMATOCRIT 26.1 % (38.0-50.0); IMMATURE GRANULOCYTE (%) 1.3 % (0.0-0.7); IMMATURE GRANULOCYTE COUNT 0.2 K/uL; INSTRUMENT ABS NEUTROPHIL CT 15.5 K/uL; LYMPHOCYTE COUNT 0.8 K/uL (1.0-2.8); MCHC 31.8 G/DL (30.0-36.0); MEAN PLAT.VOLUME 8.5 uM^3 (9.0-12.4); MONOCYTE (%) 3.8 % (3-12); MONOCYTE COUNT 0.7 K/uL (0-0.8); NEUTROPHIL COUNT 15.5 K/uL (1.8-6.4); NRBC (%) 0.1 /100 WBC (0-0); RBC DIS.WIDTH-CV 16.9 % (11.8-14.6); RBC DIS.WIDTH-SD 52.9 % (39-53); RED BLOOD COUNT 3.07 M/uL (4.00-5.50)
[2016-07-18 06:27] LABS: PLATELET COUNT 191 K/uL (156-360); WHITE BLOOD COUNT 17.2 K/uL (4.1-10.2)
[2016-07-18 07:07] LABS: ANION GAP 9 MEQ/L (2-14); CHLORIDE 105 MEQ/L (99-109); GFR ESTIMATE (CALCULATED) 29 mL/min/; GLUCOSE 272 mg/dL (70-99); POTASSIUM 4.7 MEQ/L (3.7-5.4); SAMPLE HEMOLYSIS CHECK 0; SAMPLE ICTERIC CHECK 0; SAMPLE LIPEMIA CHECK 0; SODIUM 138 MEQ/L (136-147); UREA NITROGEN (BUN) 64 mg/dL (9-23)
[2016-07-18 11:17] LABS: POINT-OF-CARE METER ID UU13113725
[2016-07-19 06:54] LABS: ANION GAP 7 MEQ/L (2-14); CHLORIDE 105 MEQ/L (99-109); GFR ESTIMATE (CALCULATED) 29 mL/min/; GLUCOSE 370 mg/dL (70-99); POTASSIUM 5.1 MEQ/L (3.7-5.4); SAMPLE HEMOLYSIS CHECK 0; SAMPLE ICTERIC CHECK 0; SAMPLE LIPEMIA CHECK 0; SODIUM 136 MEQ/L (136-147); UREA NITROGEN (BUN) 72 mg/dL (9-23)
[2016-07-19 07:00] VITALS: BP 164/74
[2016-07-19 11:17] VITALS: BP 164/77
[2016-07-19 15:45] VITALS: BP 159/72
[2016-07-19 19:50] VITALS: BP 161/55
[2016-07-20 00:05] VITALS: BP 145/69
[2016-07-20 04:21] VITALS: BP 163/74
[2016-07-20 06:42] LABS: HEMATOCRIT 27.3 % (38.0-50.0); MCH 25.9 PG (29.0-34.0); MCHC 30.4 G/DL (30.0-36.0); MCV 85.3 FL (86-99); PLATELET COUNT 194 K/uL (156-360); RBC DIS.WIDTH-CV 16.7 % (11.8-14.6); RBC DIS.WIDTH-SD 52.4 % (39-53)
[2016-07-20 06:48] LABS: WHITE BLOOD COUNT 9.8 K/uL (4.1-10.2)
[2016-07-20 06:54] LABS: ANION GAP 6 MEQ/L (2-14); CHLORIDE 106 MEQ/L (99-109); GFR ESTIMATE (CALCULATED) 34 mL/min/; GLUCOSE 368 mg/dL (70-99); POTASSIUM 4.8 MEQ/L (3.7-5.4); SAMPLE HEMOLYSIS CHECK 0; SAMPLE ICTERIC CHECK 0; SAMPLE LIPEMIA CHECK 0; SODIUM 137 MEQ/L (136-147); UREA NITROGEN (BUN) 71 mg/dL (9-23)
[2016-07-20 07:10] LABS: ABS NEUTROPHIL COUNT 8.5; BASOPHILS 0.9 %; EOSINOPHIL ABS CT 0; INSTRUMENT ABS NEUTROPHIL CT 7.3 K/uL; METAMYELOCYTES 0.9 %; MYELOCYTES 1.7 %; PLAT.SUFFICIENCY ADEQUATE; SEG.NEUTROPHILS 86.9 % (46.0-76.0); SMUDGE CELLS 2.6
[2016-07-20 08:00] VITALS: BP 133/67
[2016-07-20 10:51] LABS: POINT-OF-CARE METER ID UU13113725
[2016-07-20 11:00] VITALS: BP 130/61
[2016-07-20 15:52] VITALS: BP 137/62
[2016-07-20 16:26] LABS: POINT-OF-CARE METER ID UU13113725
[2016-07-20 19:19] VITALS: BP 145/70
[2016-07-20 21:36] LABS: POINT-OF-CARE METER ID UU13113725
[2016-07-21 00:09] VITALS: BP 132/71
[2016-07-21 03:41] VITALS: BP 137/63
[2016-07-21 05:46] LABS: POINT-OF-CARE METER ID UU13113725
[2016-07-21 10:05] LABS: ANION GAP 6 MEQ/L (2-14); CHLORIDE 108 MEQ/L (99-109); GFR ESTIMATE (CALCULATED) 40 mL/min/; GLUCOSE 250 mg/dL (70-99); POTASSIUM 4.7 MEQ/L (3.7-5.4); SAMPLE HEMOLYSIS CHECK 0; SAMPLE ICTERIC CHECK 0; SAMPLE LIPEMIA CHECK 0; SODIUM 139 MEQ/L (136-147); UREA NITROGEN (BUN) 63 mg/dL (9-23)
[2016-07-21 11:33] LABS: POINT-OF-CARE METER ID UU13113725
[2016-07-21 16:37] LABS: POINT-OF-CARE METER ID UU13113725
[2016-07-21 17:00] VITALS: BP 154/73
[2016-07-21 19:05] VITALS: BP 160/74
[2016-07-21 21:07] LABS: POINT-OF-CARE METER ID UU13113725
[2016-07-21 23:00] VITALS: BP 170/77
[2016-07-22 07:24] VITALS: BP 179/80
[2016-07-22 08:01] LABS: ANION GAP 7 MEQ/L (2-14); CHLORIDE 107 MEQ/L (99-109); GFR ESTIMATE (CALCULATED) 46 mL/min/; GLUCOSE 263 mg/dL (70-99); IRON 30 MCG/DL (35-150); POTASSIUM 4.8 MEQ/L (3.7-5.4); SAMPLE HEMOLYSIS CHECK 0; SAMPLE ICTERIC CHECK 0; SAMPLE LIPEMIA CHECK 0; SODIUM 140 MEQ/L (136-147); UREA NITROGEN (BUN) 62 mg/dL (9-23)
[2016-07-22 16:55] VITALS: BP 150/64
[2016-07-22 21:29] LABS: POINT-OF-CARE METER ID UU13113725
[2016-07-22 22:48] VITALS: BP 177/76
[2016-07-23 05:30] LABS: POINT-OF-CARE METER ID UU13113725
[2016-07-23 08:11] VITALS: BP 172/70
[2016-07-23 09:00] LABS: ANION GAP 7 MEQ/L (2-14); CHLORIDE 109 MEQ/L (99-109); GFR ESTIMATE (CALCULATED) 54 mL/min/; GLUCOSE 170 mg/dL (70-99); POTASSIUM 4.5 MEQ/L (3.7-5.4); SAMPLE HEMOLYSIS CHECK 0; SAMPLE ICTERIC CHECK 0; SAMPLE LIPEMIA CHECK 0; SODIUM 143 MEQ/L (136-147); UREA NITROGEN (BUN) 49 mg/dL (9-23)
[2016-07-23 11:17] LABS: POINT-OF-CARE METER ID UU13113725
[2016-07-23 16:06] LABS: POINT-OF-CARE METER ID UU13113725
[2016-07-23 17:22] VITALS: BP 158/76
[2016-07-23 20:48] LABS: POINT-OF-CARE METER ID UU13113725
[2016-07-23 22:50] VITALS: BP 140/68
[2016-07-24 07:27] VITALS: BP 164/79
[2016-07-24 07:45] LABS: ANION GAP 8 MEQ/L (2-14); CHLORIDE 110 MEQ/L (99-109); GFR ESTIMATE (CALCULATED) > 59 mL/min/; POTASSIUM 4.4 MEQ/L (3.7-5.4); SAMPLE HEMOLYSIS CHECK 0; SAMPLE ICTERIC CHECK 0; SAMPLE LIPEMIA CHECK 0; SODIUM 145 MEQ/L (136-147); UREA NITROGEN (BUN) 43 mg/dL (9-23)
[2016-07-24 07:47] LABS: GLUCOSE 106 mg/dL (70-99)
[2016-07-24] MEDS ORDERED: INVANZ1 GM IM (13:39)
[2016-07-24] MEDS ORDERED: DUONEB 2.5-0.5 M3 ML AEROSOL (13:40)
[2016-07-24] MEDS ORDERED: LEVEMIR100 UNIT/2 SC (13:45)
[2016-07-24] MEDS ORDERED: LASIX20 MG PO (13:46)
[2016-07-24] MEDS ORDERED: NOVOLOG PE100 UNITS/ SC (13:46)
[2016-07-24 15:20] VITALS: BP 140/70
[2016-07-24 16:46] LABS: POINT-OF-CARE METER ID UU13113725
== END 2016-07-24 21:44 | DRG 872 ==
LOC: EME 16:44 → 5EAST 20:00 → EDOF 20:00 → 5EAST 21:05
PROVIDERS: Emergency Medicine; Internal Medicine; Internal Medicine Nephrology
DX: A41.9 Sepsis, unspecified organism (principal); N39.0 Urinary tract infection, site not specified; N17.9 Acute kidney failure, unspecified; E11.621 Type 2 diabetes mellitus with foot ulcer; L89.321 Pressure ulcer of left buttock, stage 1; L89.622 Pressure ulcer of left heel, stage 2; J44.1 Chronic obstructive pulmonary disease with (acute) exacerbation; E11.22 Type 2 diabetes mellitus with diabetic chronic kidney disease; I50.30 Unspecified diastolic (congestive) heart failure; L30.9 Dermatitis, unspecified; E66.01 Morbid (severe) obesity due to excess calories; Z68.41 Body mass index [BMI] 40.0-44.9, adult; I12.9 Hypertensive chronic kidney disease with stage 1 through stage 4 chronic kidney disease, or unspecified chronic kidney disease; N18.3 Chronic kidney disease, stage 3 (moderate); D50.0 Iron deficiency anemia secondary to blood loss (chronic); B96.1 Klebsiella pneumoniae [K. pneumoniae] as the cause of diseases classified elsewhere; Z87.891 Personal history of nicotine dependence
CPT/HCPCS: 36600; 71010; 76770; 80048; 80069; 81003; 82803; 82948; 83540; 83605; 83880; 84466; 84484; 85025; 87040; 87077; 87086; 87186; 87801; 93005; 94640; 94640 76; 94799; 99202; 99281; 99285; A6021; J0692; J1335; J1644; J1756; J1815; J1956; J2920; J2930; J2997; J7030; J7040; J7050

== ENCOUNTER → 2016-07-26 | Outpatient (CLI) | payer OTHER ==
[~2016-07-26] MED LIST changes: +CLARITIN,ALAVAR10 MG PO; +DUONEB 2.5-0.5 M3 ML AEROSOL; +INVANZ1 GM IM; +KLOR-CON M2020 MEQ PO; +LEVEMIR100 UNIT/2 SC; +MELATONIN5 M1 PO; +TUMS500 MG PO
== END ==
LOC: AMB 09:43
DX: E11.621 Type 2 diabetes mellitus with foot ulcer (principal); L97.421 Non-pressure chronic ulcer of left heel and midfoot limited to breakdown of skin; R60.0 Localized edema; I87.2 Venous insufficiency (chronic) (peripheral); I25.10 Atherosclerotic heart disease of native coronary artery without angina pectoris; I13.0 Hypertensive heart and chronic kidney disease with heart failure and stage 1 through stage 4 chronic kidney disease, or unspecified chronic kidney disease; E11.22 Type 2 diabetes mellitus with diabetic chronic kidney disease; N18.9 Chronic kidney disease, unspecified; I50.9 Heart failure, unspecified; E66.01 Morbid (severe) obesity due to excess calories
CPT/HCPCS: 99214

== ENCOUNTER → 2016-08-09 | Outpatient (CLI) | payer OTHER | LOC: AMB 08:00 | DX: I87.8 Other specified disorders of veins (principal); I89.0 Lymphedema, not elsewhere classified; E11.22 Type 2 diabetes mellitus with diabetic chronic kidney disease; E11.40 Type 2 diabetes mellitus with diabetic neuropathy, unspecified; E11.621 Type 2 diabetes mellitus with foot ulcer; L97.429 Non-pressure chronic ulcer of left heel and midfoot with unspecified severity; N18.3 Chronic kidney disease, stage 3 (moderate); Z79.4 Long term (current) use of insulin | CPT/HCPCS: 99212 ==

== ENCOUNTER → 2016-08-16 | Outpatient (CLI) | payer OTHER | LOC: AMB 07:29 | DX: I87.2 Venous insufficiency (chronic) (peripheral) (principal); I89.0 Lymphedema, not elsewhere classified; L97.429 Non-pressure chronic ulcer of left heel and midfoot with unspecified severity; Z88.2 Allergy status to sulfonamides | CPT/HCPCS: 99213 ==

== ENCOUNTER → 2016-08-23 | Outpatient (CLI) | payer OTHER | LOC: AMB 09:30 | DX: E11.621 Type 2 diabetes mellitus with foot ulcer (principal); L97.429 Non-pressure chronic ulcer of left heel and midfoot with unspecified severity; I87.2 Venous insufficiency (chronic) (peripheral) ==

== ENCOUNTER → 2016-08-30 | Outpatient (CLI) | payer OTHER | LOC: AMB 07:48 | DX: I87.2 Venous insufficiency (chronic) (peripheral) (principal); E11.40 Type 2 diabetes mellitus with diabetic neuropathy, unspecified; E11.621 Type 2 diabetes mellitus with foot ulcer; L97.429 Non-pressure chronic ulcer of left heel and midfoot with unspecified severity; I10 Essential (primary) hypertension; Z88.2 Allergy status to sulfonamides | CPT/HCPCS: 99212 ==

== ENCOUNTER → 2016-09-06 | Outpatient (CLI) | payer OTHER | LOC: AMB 07:27 | DX: I83.11 Varicose veins of right lower extremity with inflammation (principal); I83.12 Varicose veins of left lower extremity with inflammation; L97.429 Non-pressure chronic ulcer of left heel and midfoot with unspecified severity | CPT/HCPCS: 99211 ==

== ENCOUNTER → 2016-09-13 | Outpatient (CLI) | payer OTHER | LOC: AMB 08:00 | DX: I83.11 Varicose veins of right lower extremity with inflammation (principal); I83.12 Varicose veins of left lower extremity with inflammation; L97.429 Non-pressure chronic ulcer of left heel and midfoot with unspecified severity | CPT/HCPCS: 99212 ==

== ENCOUNTER → 2016-09-21 | Outpatient (CLI) | payer OTHER | LOC: AMB 07:33 | DX: I83.018 Varicose veins of right lower extremity with ulcer other part of lower leg (principal); I83.028 Varicose veins of left lower extremity with ulcer other part of lower leg; L97.819 Non-pressure chronic ulcer of other part of right lower leg with unspecified severity; L97.829 Non-pressure chronic ulcer of other part of left lower leg with unspecified severity; L97.429 Non-pressure chronic ulcer of left heel and midfoot with unspecified severity | CPT/HCPCS: 99212 ==

== ENCOUNTER → 2016-09-27 | Outpatient (CLI) | payer OTHER | LOC: AMB 08:57 | DX: I83.11 Varicose veins of right lower extremity with inflammation (principal); I83.12 Varicose veins of left lower extremity with inflammation; Z88.8 Allergy status to other drugs, medicaments and biological substances | CPT/HCPCS: 99213 ==

== ENCOUNTER → 2016-10-04 | Outpatient (CLI) | payer OTHER | LOC: AMB 07:34 | DX: I87.2 Venous insufficiency (chronic) (peripheral) (principal) ==

== ENCOUNTER → 2016-10-11 | Outpatient (CLI) | payer OTHER | LOC: AMB 08:00 | DX: I83.11 Varicose veins of right lower extremity with inflammation (principal); I83.12 Varicose veins of left lower extremity with inflammation; L97.429 Non-pressure chronic ulcer of left heel and midfoot with unspecified severity; Z88.0 Allergy status to penicillin; Z88.2 Allergy status to sulfonamides; Z88.6 Allergy status to analgesic agent; Z88.8 Allergy status to other drugs, medicaments and biological substances | CPT/HCPCS: 99212 ==

== ENCOUNTER → 2016-10-17 | Outpatient (CLI) | payer OTHER | LOC: AMB 08:41 | DX: I87.2 Venous insufficiency (chronic) (peripheral) (principal); L97.429 Non-pressure chronic ulcer of left heel and midfoot with unspecified severity; Z88.2 Allergy status to sulfonamides ==

== ENCOUNTER 2017-06-07 09:25 | Inpatient (IN) | payer OTHER ==
[~2017-06-07] VITALS: Ht 188 cm; Wt 171.6 kg
[2017-06-07] MEDS ORDERED: PROZAC10 MG PO (09:59)
[2017-06-07] MEDS ORDERED: LASIX40 MG PO (10:07)
[2017-06-07] MEDS ORDERED: OXYCONTIN10 MG PO (10:10)
[2017-06-07] MEDS ORDERED: CLARITIN,ALAVAR10 MG PO (10:12)
[2017-06-07] MEDS ORDERED: NATURE'S TEARS15 M1 BOTH EYES (10:14)
[2017-06-07] MEDS ORDERED: PENTOXIFYLLINE400 MG PO (10:19)
[2017-06-07] MEDS ORDERED: KLOR-CON M2020 MEQ PO (10:26)
[2017-06-07] MEDS ORDERED: ATARAX,VISTARIL25 MG PO (10:37)
[2017-06-07] MEDS ORDERED: COUGH SYRU100 MG/5 M PO (10:38)
[2017-06-07 10:59] LABS: BASOPHIL (%) 0 % (0-1); EOSINOPHIL (%) 1.8 % (0-5); EOSINOPHIL COUNT 0.1 K/uL (0-0.3); HEMATOCRIT 29.6 % (38.0-50.0); HEMOGLOBIN 9.3 G/DL (12.5-16.6); LYMPHOCYTE (%) 9.7 % (15-42); LYMPHOCYTE COUNT 0.5 K/uL (1.0-2.8); MCHC 31.4 G/DL (30.0-36.0); MCV 85.8 FL (86-99); MONOCYTE (%) 19.3 % (3-12); NEUTROPHIL (%) 68.2 % (45-76); NEUTROPHIL COUNT 3.5 K/uL (1.8-6.4); RBC DIS.WIDTH-CV 16.4 % (11.8-14.6); RBC DIS.WIDTH-SD 51.3 % (39-53); RED BLOOD COUNT 3.45 M/uL (4.00-5.50); WHITE BLOOD COUNT 5.1 K/uL (4.1-10.2)
[2017-06-07 11:01] LABS: PLATELET COUNT 59 K/uL (156-360)
[2017-06-07 11:05] LABS: INTER. NORMALIZED RATIO 1.2
[2017-06-07 11:07] LABS: ALBUMIN 2.6 g/dL (3.2-4.8); CHLORIDE 109 mEq/L (99-109); POTASSIUM 4.8 mEq/L (3.7-5.4); SODIUM 142 mEq/L (136-147)
[2017-06-07 11:08] LABS: PTT 26.3 SEC (25-37)
[2017-06-07 11:10] LABS: GLUCOSE 149 mg/dL (70-99); TOTAL PROTEIN 5.9 g/dL (6.4-8.3)
[2017-06-07 11:11] LABS: TOTAL BILIRUBIN 0.3 mg/dL (0.0-1.0)
[2017-06-07 11:13] LABS: ALKALINE PHOSPHATASE 63 IU/L (3-129); GFR ESTIMATE (CALCULATED) 35 mL/min/ (58.99-99999)
[2017-06-07 11:14] LABS: UREA NITROGEN (BUN) 38 mg/dL (9-23)
[2017-06-07 11:15] LABS: AST (GOT) 13 IU/L (2-34)
[2017-06-07 11:16] LABS: ALT (GPT) 11 IU/L (3-49)
[2017-06-07 11:17] LABS: LIPASE 7 U/L (1.0-51.0)
[2017-06-07 11:19] LABS: TROP-I INTERPRETATION NEGATIVE; TROPONIN-I 0.02 ng/mL (0.0-0.30)
[2017-06-07 11:23] LABS: APPEARANCE CLOUDY ((CLEAR)); BILIRUBIN NEGATIVE; BLOOD LARGE; COLOR AMBER ((YELLOW)); GLUCOSE (STRIP) NEGATIVE; KETONES NEGATIVE; LEUKOCYTES LARGE; NITRITE NEGATIVE; PROTEIN (STRIP) >=500; SPECIFIC GRAVITY 1.016 (1.000-1.030); UROBILINOGEN 0.2 MG/DL (0.2-1.0)
[2017-06-07 11:39] LABS: BACTERIA RARE /HPF; EPITHELIAL CELLS NONE SEEN /HPF; MUCUS TRACE /LPF; UCUL ADDED? YES; WHITE BLOOD CELLS TNTC /HPF (0-5)
[2017-06-07 11:42] LABS: BASE EXCESS -1.2 mEq/L (-3 to +3); BICARBONATE 28.2 mEq/L (22-26); COMMENTS - BLOOD GASES A+C+; DEVICE NC; METHEMOGLOBIN 0.7 % (0-1.5); O2 FLOW 6 L/MIN; PCO2 69 mm Hg (35-45); PO2 80 mm Hg (80-100); SITE RR; pH 7.22 (7.35-7.45)
[2017-06-07 13:35] LABS: BASE EXCESS 0.9 mEq/L (-3 to +3); BICARBONATE 28.9 mEq/L (22-26); CARBOXY HGB 1.6 % (0-5); METHEMOGLOBIN 0.8 % (0-1.5); PCO2 66 mm Hg (35-45); PO2 71 mm Hg (80-100)
[2017-06-07 13:36] LABS: COMMENTS - BLOOD GASES A+C+; DEVICE 840 PB MASK; FI02 50 %; MODE SPONT NIV; PEEP 6 CM/H20; PRES. SUPPORT 14 CM/H2O; SITE RR; TOTAL RESP RATE 15 resp/min; pH 7.25 (7.35-7.45)
[2017-06-07 16:45] VITALS: BP 165/74
[2017-06-07 17:00] VITALS: BP 151/90
[2017-06-07 18:00] VITALS: BP 154/68
[2017-06-07 19:00] VITALS: BP 147/66
[2017-06-07 22:00] VITALS: BP 175/100
[2017-06-07 22:38] LABS: BILIRUBIN NEGATIVE; BLOOD LARGE; COLOR YELLOW ((YELLOW)); GLUCOSE (STRIP) NEGATIVE; KETONES NEGATIVE; LEUKOCYTES LARGE; NITRITE NEGATIVE; PROTEIN (STRIP) 100; SPECIFIC GRAVITY 1.011 (1.000-1.030); UROBILINOGEN 0.2 MG/DL (0.2-1.0)
[2017-06-07 22:41] LABS: APPEARANCE TURBID ((CLEAR))
[2017-06-07 22:42] LABS: AMORPHOUS PHOSPHATE CRYSTALS 1+; BACTERIA 2+ /HPF; EPITHELIAL CELLS NONE SEEN /HPF; MUCUS NONE SEEN /LPF; UCUL ADDED? YES; WHITE BLOOD CELLS TNTC /HPF (0-5)
[2017-06-07 23:00] VITALS: BP 155/72
[2017-06-08] VITALS (15 sets, daily range): BP systolic 148–178; BP diastolic 62–83
[2017-06-08 08:32] LABS: CHLORIDE 111 mEq/L (99-109); SODIUM 143 mEq/L (136-147)
[2017-06-08 08:34] LABS: GLUCOSE 143 mg/dL (70-99)
[2017-06-08 08:38] LABS: CREATININE 1.8 mg/dL (0.6-1.3); GFR ESTIMATE (CALCULATED) 40 mL/min/ (58.99-99999)
[2017-06-08 08:39] LABS: UREA NITROGEN (BUN) 41 mg/dL (9-23)
[2017-06-08 09:21] LABS: HEMOGLOBIN A1c (GLYCOHEMOGLOB) 6.9 % (Below 5.7)
[2017-06-08 11:55] LABS: HEMATOCRIT 32.4 % (38.0-50.0); HEMOGLOBIN 10.1 G/DL (12.5-16.6); MCH 26.4 PG (29.0-34.0); MCHC 31.2 G/DL (30.0-36.0); MCV 84.6 FL (86-99); PLATELET COUNT 62 K/uL (156-360); RBC DIS.WIDTH-CV 15.8 % (11.8-14.6); RBC DIS.WIDTH-SD 48.5 % (39-53); RED BLOOD COUNT 3.83 M/uL (4.00-5.50); WHITE BLOOD COUNT 3.4 K/uL (4.1-10.2)
[2017-06-09] VITALS (9 sets, daily range): BP systolic 157–197; BP diastolic 69–83
[2017-06-09 04:46] LABS: HEMATOCRIT 32.8 % (38.0-50.0); HEMOGLOBIN 10.7 G/DL (12.5-16.6); MCH 26.5 PG (29.0-34.0); MCHC 32.6 G/DL (30.0-36.0); MCV 81.2 FL (86-99); PLATELET COUNT 74 K/uL (156-360); RBC DIS.WIDTH-CV 15.5 % (11.8-14.6); RBC DIS.WIDTH-SD 45.9 % (39-53); RED BLOOD COUNT 4.04 M/uL (4.00-5.50); WHITE BLOOD COUNT 5.1 K/uL (4.1-10.2)
[2017-06-09 05:02] LABS: CHLORIDE 108 mEq/L (99-109); POTASSIUM 4.8 mEq/L (3.7-5.4); SODIUM 139 mEq/L (136-147)
[2017-06-09 05:04] LABS: GLUCOSE 200 mg/dL (70-99)
[2017-06-09 05:08] LABS: CREATININE 1.8 mg/dL (0.6-1.3); GFR ESTIMATE (CALCULATED) 40 mL/min/ (58.99-99999); UREA NITROGEN (BUN) 54 mg/dL (9-23)
[2017-06-10 00:22] VITALS: BP 162/70
[2017-06-10 05:37] VITALS: BP 156/72
[2017-06-10 08:21] VITALS: BP 176/82
[2017-06-10 12:43] VITALS: BP 150/78
[2017-06-10 15:39] LABS: Heparin Induced Plt Ab Negative (Negative)
[2017-06-10 16:17] LABS: UFH SRA Result Negative (Negative)
[2017-06-10 17:26] VITALS: BP 120/64
[2017-06-10 21:18] VITALS: BP 187/85
[2017-06-11 01:13] VITALS: BP 175/78
[2017-06-11 05:14] VITALS: BP 182/84
[2017-06-11 09:12] VITALS: BP 172/74
[2017-06-11 15:47] VITALS: BP 161/80
[2017-06-11 23:23] VITALS: BP 158/80
[2017-06-12 07:20] LABS: C-REACTIVE PROTEIN 86.1 MG/L (0-10); PREALBUMIN 13.8 mg/dL (10-40)
[2017-06-12 09:01] VITALS: BP 162/70
[2017-06-12 16:53] VITALS: BP 162/72
[2017-06-12 19:39] VITALS: BP 137/63
[2017-06-12 23:46] VITALS: BP 134/60
[2017-06-13] MEDS ORDERED: LEVAQUIN750 MG PO ×2 (08:19→08:50)
[2017-06-13] MEDS ORDERED: LEVEMIR100 UNIT/2 SC (08:21)
[2017-06-13 08:30] VITALS: BP 144/68
== END 2017-06-13 13:41 | DRG 190 ==
LOC: EME 09:25 → EDOF 14:39 → 4WEST 14:39 → 3EAST 14:39 → ENRESERV 14:47 → 4WEST 16:34 → ENRESERV 06-09 11:17 → 3EAST 06-09 14:11
PROVIDERS: Emergency Medicine; Internal Medicine; Internal Medicine Critical Care Medicine; Internal Medicine Pulmonary Disease; Nurse Practitioner; Surgery
PROC: 5A09357 Assistance with Respiratory Ventilation, Less than 24 Consecutive Hours, Continuous Positive Airway Pressure (ICD-10-PCS; principal; 2017-06-07)
DX: J44.1 Chronic obstructive pulmonary disease with (acute) exacerbation (principal); J96.22 Acute and chronic respiratory failure with hypercapnia; J18.9 Pneumonia, unspecified organism; I13.0 Hypertensive heart and chronic kidney disease with heart failure and stage 1 through stage 4 chronic kidney disease, or unspecified chronic kidney disease; I50.30 Unspecified diastolic (congestive) heart failure; E11.22 Type 2 diabetes mellitus with diabetic chronic kidney disease; N18.3 Chronic kidney disease, stage 3 (moderate); J44.0 Chronic obstructive pulmonary disease with (acute) lower respiratory infection; E66.9 Obesity, unspecified; J10.1 Influenza due to other identified influenza virus with other respiratory manifestations; J11.00 Influenza due to unidentified influenza virus with unspecified type of pneumonia; D69.6 Thrombocytopenia, unspecified; N39.0 Urinary tract infection, site not specified; R26.2 Difficulty in walking, not elsewhere classified; Z16.11 Resistance to penicillins; B96.4 Proteus (mirabilis) (morganii) as the cause of diseases classified elsewhere; E78.5 Hyperlipidemia, unspecified; K21.9 Gastro-esophageal reflux disease without esophagitis; E11.51 Type 2 diabetes mellitus with diabetic peripheral angiopathy without gangrene; Z16.29 Resistance to other single specified antibiotic; I89.0 Lymphedema, not elsewhere classified; D63.8 Anemia in other chronic diseases classified elsewhere; I87.2 Venous insufficiency (chronic) (peripheral); L89.623 Pressure ulcer of left heel, stage 3; I87.8 Other specified disorders of veins; Z87.891 Personal history of nicotine dependence; Z80.0 Family history of malignant neoplasm of digestive organs; Z68.42 Body mass index [BMI] 45.0-49.9, adult; Z79.4 Long term (current) use of insulin; Z99.81 Dependence on supplemental oxygen; Z87.01 Personal history of pneumonia (recurrent)
CPT/HCPCS: 36415; 36600; 71046; 71250; 80048; 80053; 81003; 82803; 82948; 83036; 83605; 83690; 84134; 84484; 85025; 85027; 85610; 85651; 85730; 86022 90; 86140; 87040; 87077; 87086; 87186; 87502; 87641; 94002; 94003; 94010; 94640; 94640 76; 94760; 94799; 99281; 99285; J0360; J0692; J1644; J1650; J1815; J1956; J2920; J7120

== ENCOUNTER 2017-06-15 16:39 | Inpatient (IN) | payer OTHER ==
[~2017-06-15] VITALS: Ht 188 cm; Wt 170.0 kg
[~2017-06-15 16:39] MED LIST changes: +ATARAX,VISTARIL25 MG PO; +COUGH SYRU100 MG/5 M PO; +LEVAQUIN750 MG PO; +NATURE'S TEARS15 M1 BOTH EYES; +OXYCONTIN10 MG PO; +PENTOXIFYLLINE400 MG PO; +PROZAC10 MG PO
[2017-06-15 18:01] LABS: BASOPHIL (%) 0.2 % (0-1); EOSINOPHIL (%) 3.7 % (0-5); EOSINOPHIL COUNT 0.6 K/uL (0-0.3); HEMATOCRIT 32.2 % (38.0-50.0); IMMATURE GRANULOCYTE (%) 1.3 % (0.0-0.7); LYMPHOCYTE (%) 7.4 % (15-42); LYMPHOCYTE COUNT 1.2 K/uL (1.0-2.8); MCH 26.2 PG (29.0-34.0); MCHC 31.1 G/DL (30.0-36.0); MCV 84.5 FL (86-99); MONOCYTE (%) 9.8 % (3-12); MONOCYTE COUNT 1.6 K/uL (0-0.8); NEUTROPHIL (%) 77.6 % (45-76); NEUTROPHIL COUNT 12.5 K/uL (1.8-6.4); PLATELET COUNT 117 K/uL (156-360); RBC DIS.WIDTH-CV 15.9 % (11.8-14.6); RBC DIS.WIDTH-SD 48.7 % (39-53); RED BLOOD COUNT 3.81 M/uL (4.00-5.50); WHITE BLOOD COUNT 16.1 K/uL (4.1-10.2)
[2017-06-15 18:18] LABS: ALBUMIN 2.2 G/DL (3.2-4.8); CHLORIDE 103 MEQ/L (99-109); POTASSIUM 4.3 MEQ/L (3.7-5.4); SODIUM 133 MEQ/L (136-147); TOTAL BILIRUBIN 0.3 MG/DL (0.0-1.0)
[2017-06-15 18:24] LABS: ALKALINE PHOSPHATASE 62 IU/L (3-129); ALT (GPT) 8 IU/L (3-49); AST (GOT) 9 IU/L (2-34); GFR ESTIMATE (CALCULATED) 16 mL/min/ (58.99-99999); GLUCOSE 163 mg/dL (70-99); UREA NITROGEN (BUN) 63 mg/dL (9-23)
[2017-06-15 18:37] LABS: TROP-I INTERPRETATION NEGATIVE; TROPONIN-I 0.02 ng/mL (0.0-0.30)
[2017-06-15 19:40] LABS: APPEARANCE CLOUDY ((CLEAR)); BILIRUBIN NEGATIVE; BLOOD MODERATE; COLOR AMBER ((YELLOW)); GLUCOSE (STRIP) NEGATIVE; KETONES NEGATIVE; LEUKOCYTES SMALL; NITRITE NEGATIVE; PROTEIN (STRIP) 100; SPECIFIC GRAVITY 1.018 (1.000-1.030); UROBILINOGEN 0.2 MG/DL (0.2-1.0)
[2017-06-15 19:43] LABS: BACTERIA RARE /HPF; EPITHELIAL CELLS RARE /HPF; MUCUS TRACE /LPF; RED BLOOD CELLS TNTC /HPF (0-5); WHITE BLOOD CELLS 20-30 /HPF (0-5)
[2017-06-15] MEDS ORDERED: DULCOLAX10 MG PR (19:43)
[2017-06-15] MEDS ORDERED: CLARITIN10 M3 PO (19:44)
[2017-06-15] MEDS ORDERED: FLEET ENEMA-AD118 ML PR (19:45)
[2017-06-15] MEDS ORDERED: FLONASE16 G1 BOTH NARES (19:46)
[2017-06-15] MEDS ORDERED: DUONEB 2.5-0.5 M3 ML AEROSOL (19:50)
[2017-06-15] MEDS ORDERED: LYRICA100 MG PO (19:52)
[2017-06-15] MEDS ORDERED: MAALOX ADVANCE355 ML PO (19:53)
[2017-06-15] MEDS ORDERED: NATURE'S TEARS15 M1 BOTH EYES (19:55)
[2017-06-15] MEDS ORDERED: NORCO 5/3251 TABLET PO (19:56)
[2017-06-15] MEDS ORDERED: BIOTENE1000 ML MM (19:59)
[2017-06-15] MEDS ORDERED: LEVAQUIN750 MG PO (20:04)
[2017-06-15] MEDS ORDERED: GLUCAGEN1 M1 IM (20:06)
[2017-06-15] MEDS ORDERED: HUMALOG100 UNIT/2 SC (20:07)
[2017-06-15] MEDS ORDERED: LEVEMIR FL100 UNIT/1 SC (20:09)
[2017-06-15] MEDS ORDERED: PROCRIT10000 UNI1 IV (20:10)
[2017-06-15] MEDS ORDERED: HEPARIN LO100 UNIT/7 IV (20:12)
[2017-06-15 20:48] LABS: BASE EXCESS -3.3 mEq/L (-3 to +3); BICARBONATE 24.4 mEq/L (22-26); CARBOXY HGB 1.8 % (0-5); COMMENTS - BLOOD GASES C+; DEVICE NC; METHEMOGLOBIN 1.1 % (0-1.5); O2 FLOW 5 L/MIN; PCO2 57 mm Hg (35-45); PO2 57 mm Hg (80-100); SITE RR; TOTAL RESP RATE 16 resp/min; pH 7.24 (7.35-7.45)
[2017-06-15 23:18] VITALS: BP 97/66
[2017-06-16] VITALS (24 sets, daily range): BP systolic 75–133; BP diastolic 43–64
[2017-06-16 01:21] LABS: BASE EXCESS -4.8 mEq/L (-3 to +3); BICARBONATE 22.7 mEq/L (22-26); CARBOXY HGB 1.2 % (0-5); COMMENTS - BLOOD GASES C+A+; DEVICE NIV; FI02 60 %; METHEMOGLOBIN 1.5 % (0-1.5); MODE SPONT; PCO2 53 mm Hg (35-45); PEEP 8 CM/H20; PO2 61 mm Hg (80-100); PRES. SUPPORT 10 CM/H2O; SITE LR; TOTAL RESP RATE 20 resp/min
[2017-06-16 01:22] LABS: pH 7.24 (7.35-7.45)
[2017-06-16 05:03] LABS: BASOPHIL (%) 0.1 % (0-1); EOSINOPHIL (%) 1.9 % (0-5); EOSINOPHIL COUNT 0.3 K/uL (0-0.3); HEMATOCRIT 30.4 % (38.0-50.0); HEMOGLOBIN 9.6 G/DL (12.5-16.6); IMMATURE GRANULOCYTE (%) 0.6 % (0.0-0.7); LYMPHOCYTE (%) 4.3 % (15-42); LYMPHOCYTE COUNT 0.7 K/uL (1.0-2.8); MCH 26.6 PG (29.0-34.0); MCHC 31.6 G/DL (30.0-36.0); MCV 84.2 FL (86-99); MONOCYTE (%) 11.3 % (3-12); MONOCYTE COUNT 1.8 K/uL (0-0.8); NEUTROPHIL (%) 81.8 % (45-76); NEUTROPHIL COUNT 12.8 K/uL (1.8-6.4); PLATELET COUNT 107 K/uL (156-360); RBC DIS.WIDTH-CV 15.7 % (11.8-14.6); RBC DIS.WIDTH-SD 48.5 % (39-53); RED BLOOD COUNT 3.61 M/uL (4.00-5.50); WHITE BLOOD COUNT 15.6 K/uL (4.1-10.2)
[2017-06-16 05:50] LABS: CHLORIDE 105 MEQ/L (99-109); GFR ESTIMATE (CALCULATED) 16 mL/min/ (58.99-99999); GLUCOSE 166 mg/dL (70-99); POTASSIUM 4.3 MEQ/L (3.7-5.4); SODIUM 137 MEQ/L (136-147); UREA NITROGEN (BUN) 65 mg/dL (9-23)
[2017-06-16 07:48] LABS: BASE EXCESS -4.7 mEq/L (-3 to +3); BICARBONATE 22.4 mEq/L (22-26); CARBOXY HGB 1.3 % (0-5); COMMENTS - BLOOD GASES A+C+; DEVICE MASK VENT; FI02 45 %; METHEMOGLOBIN 1.9 % (0-1.5); MODE SPONT PS; PCO2 50 mm Hg (35-45); PEEP 8 CM/H20; PO2 82 mm Hg (80-100); PRES. SUPPORT 14 CM/H2O; SITE LR; TOTAL RESP RATE 25 resp/min; pH 7.26 (7.35-7.45)
[2017-06-16 11:07] LABS: CHLORIDE 106 MEQ/L (99-109); GFR ESTIMATE (CALCULATED) 16 mL/min/ (58.99-99999); GLUCOSE 164 mg/dL (70-99); POTASSIUM 4.3 MEQ/L (3.7-5.4); SODIUM 136 MEQ/L (136-147); UREA NITROGEN (BUN) 64 mg/dL (9-23)
[2017-06-16 12:01] LABS: BASE EXCESS -4.3 mEq/L (-3 to +3); BICARBONATE 21.6 mEq/L (22-26); CARBOXY HGB 0.7 % (0-5); METHEMOGLOBIN 1.7 % (0-1.5); PCO2 42 mm Hg (35-45); PO2 208 mm Hg (80-100); pH 7.32 (7.35-7.45)
[2017-06-16 12:02] LABS: COMMENTS - BLOOD GASES A+C+; DEVICE VENT; FI02 100 %; MECHANICAL RATE 20 resp/min; MODE ACVC; PEEP 10 CM/H20; SITE LR; TOTAL RESP RATE 20 resp/min
[2017-06-17] VITALS (13 sets, daily range): BP systolic 87–139; BP diastolic 44–855
[2017-06-17 05:28] LABS: BASOPHIL (%) 0.2 % (0-1); EOSINOPHIL (%) 0.9 % (0-5); EOSINOPHIL COUNT 0.2 K/uL (0-0.3); HEMATOCRIT 26.8 % (38.0-50.0); HEMOGLOBIN 8.4 G/DL (12.5-16.6); IMMATURE GRANULOCYTE (%) 0.9 % (0.0-0.7); LYMPHOCYTE COUNT 0.7 K/uL (1.0-2.8); MCH 26.1 PG (29.0-34.0); MCHC 31.3 G/DL (30.0-36.0); MCV 83.2 FL (86-99); MONOCYTE (%) 9.1 % (3-12); MONOCYTE COUNT 1.7 K/uL (0-0.8); NEUTROPHIL (%) 84.9 % (45-76); NEUTROPHIL COUNT 15.4 K/uL (1.8-6.4); RBC DIS.WIDTH-CV 15.8 % (11.8-14.6); RBC DIS.WIDTH-SD 47.9 % (39-53); RED BLOOD COUNT 3.22 M/uL (4.00-5.50); WHITE BLOOD COUNT 18.2 K/uL (4.1-10.2)
[2017-06-17 05:42] LABS: PLATELET COUNT 161 K/uL (156-360)
[2017-06-17 06:04] LABS: ALBUMIN 1.6 G/DL (3.2-4.8); ALKALINE PHOSPHATASE 53 IU/L (3-129); ALT (GPT) 8 IU/L (3-49); AST (GOT) 11 IU/L (2-34); CHLORIDE 109 MEQ/L (99-109); CREATININE 3.7 MG/DL (0.6-1.3); GFR ESTIMATE (CALCULATED) 17 mL/min/ (58.99-99999); GLUCOSE 151 mg/dL (70-99); PHOSPHORUS 4.4 mg/dL (2.5-4.9); POTASSIUM 3.9 MEQ/L (3.7-5.4); SODIUM 140 MEQ/L (136-147); UREA NITROGEN (BUN) 64 mg/dL (9-23)
[2017-06-17 06:15] LABS: TOTAL BILIRUBIN 0.5 MG/DL (0.0-1.0); TOTAL PROTEIN 4.7 G/DL (6.4-8.3)
[2017-06-18] VITALS (24 sets, daily range): BP systolic 99–144; BP diastolic 50–91
[2017-06-19] VITALS (23 sets, daily range): BP systolic 63–162; BP diastolic 53–91
[2017-06-19 06:46] LABS: C DIFF TOXIN POSITIVE (NEGATIVE)
[2017-06-19 07:01] LABS: BASOPHIL (%) 0.3 % (0-1); EOSINOPHIL (%) 3.5 % (0-5); EOSINOPHIL COUNT 0.5 K/uL (0-0.3); IMMATURE GRANULOCYTE (%) 1.2 % (0.0-0.7); LYMPHOCYTE (%) 6.9 % (15-42); MCH 26.5 PG (29.0-34.0); MCHC 31.3 G/DL (30.0-36.0); MCV 84.9 FL (86-99); MONOCYTE (%) 9.3 % (3-12); MONOCYTE COUNT 1.4 K/uL (0-0.8); NEUTROPHIL (%) 78.8 % (45-76); NEUTROPHIL COUNT 11.8 K/uL (1.8-6.4); PLATELET COUNT 204 K/uL (156-360); RBC DIS.WIDTH-CV 16.3 % (11.8-14.6); RBC DIS.WIDTH-SD 50.6 % (39-53); RED BLOOD COUNT 3.77 M/uL (4.00-5.50); WHITE BLOOD COUNT 14.9 K/uL (4.1-10.2)
[2017-06-19 07:29] LABS: TROP-I INTERPRETATION NEGATIVE; TROPONIN-I 0.02 ng/mL (0.0-0.30)
[2017-06-19 10:26] LABS: CHLORIDE 113 MEQ/L (99-109); GLUCOSE 128 mg/dL (70-99); POTASSIUM 3.7 MEQ/L (3.7-5.4); SODIUM 147 MEQ/L (136-147); UREA NITROGEN (BUN) 51 mg/dL (9-23)
[2017-06-19 10:28] LABS: CREATININE 2.4 MG/DL (0.6-1.3); GFR ESTIMATE (CALCULATED) 29 mL/min/ (58.99-99999)
[2017-06-20 00:02] VITALS: BP 151/81
[2017-06-20 04:47] LABS: BASOPHIL (%) 0.3 % (0-1); EOSINOPHIL (%) 4.7 % (0-5); EOSINOPHIL COUNT 0.5 K/uL (0-0.3); HEMATOCRIT 32.6 % (38.0-50.0); HEMOGLOBIN 10.3 G/DL (12.5-16.6); IMMATURE GRANULOCYTE (%) 1.6 % (0.0-0.7); LYMPHOCYTE (%) 10.4 % (15-42); LYMPHOCYTE COUNT 1.1 K/uL (1.0-2.8); MCH 26.8 PG (29.0-34.0); MCHC 31.6 G/DL (30.0-36.0); MCV 84.7 FL (86-99); MONOCYTE (%) 9.3 % (3-12); NEUTROPHIL (%) 73.7 % (45-76); NEUTROPHIL COUNT 7.6 K/uL (1.8-6.4); PLATELET COUNT 198 K/uL (156-360); RBC DIS.WIDTH-SD 49.7 % (39-53); RED BLOOD COUNT 3.85 M/uL (4.00-5.50); WHITE BLOOD COUNT 10.3 K/uL (4.1-10.2)
[2017-06-20 05:03] LABS: CHLORIDE 114 mEq/L (99-109); POTASSIUM 3.8 mEq/L (3.7-5.4); SODIUM 146 mEq/L (136-147)
[2017-06-20 05:05] LABS: GLUCOSE 119 mg/dL (70-99)
[2017-06-20 05:09] LABS: GFR ESTIMATE (CALCULATED) 38 mL/min/ (58.99-99999)
[2017-06-20 05:10] LABS: UREA NITROGEN (BUN) 46 mg/dL (9-23)
[2017-06-20 05:14] LABS: CREATININE 1.9 mg/dL (0.6-1.3)
[2017-06-20 08:02] VITALS: BP 146/78
[2017-06-20 10:08] VITALS: BP 157/86
[2017-06-20 13:45] VITALS: BP 152/71
[2017-06-20 16:03] VITALS: BP 168/79
[2017-06-21 01:30] VITALS: BP 165/86
[2017-06-21 06:36] LABS: CHLORIDE 115 MEQ/L (99-109); CREATININE 1.6 MG/DL (0.6-1.3); GFR ESTIMATE (CALCULATED) 46 mL/min/ (58.99-99999); GLUCOSE 133 mg/dL (70-99); POTASSIUM 3.8 MEQ/L (3.7-5.4); SODIUM 146 MEQ/L (136-147); UREA NITROGEN (BUN) 35 mg/dL (9-23)
[2017-06-21 07:50] VITALS: BP 162/72
[2017-06-21 15:00] VITALS: BP 179/81
[2017-06-22] VITALS: BP 101/59
[2017-06-22 06:55] VITALS: BP 157/74
[2017-06-22 12:19] VITALS: BP 168/93
[2017-06-22 16:10] VITALS: BP 178/95
[2017-06-22 23:56] VITALS: BP 131/73
[2017-06-23 02:46] VITALS: BP 144/70
[2017-06-23 05:59] LABS: HEMATOCRIT 34.4 % (38.0-50.0); HEMOGLOBIN 10.7 G/DL (12.5-16.6); MCHC 31.1 G/DL (30.0-36.0); MCV 83.5 FL (86-99); PLATELET COUNT 157 K/uL (156-360); RBC DIS.WIDTH-CV 15.5 % (11.8-14.6); RBC DIS.WIDTH-SD 46.6 % (39-53); RED BLOOD COUNT 4.12 M/uL (4.00-5.50); WHITE BLOOD COUNT 9.2 K/uL (4.1-10.2)
[2017-06-23 06:24] LABS: ALKALINE PHOSPHATASE 41 IU/L (3-129); ALT (GPT) 10 IU/L (3-49); AST (GOT) 12 IU/L (2-34); CHLORIDE 112 MEQ/L (99-109); CREATININE 1.5 MG/DL (0.6-1.3); GFR ESTIMATE (CALCULATED) 49 mL/min/ (58.99-99999); GLUCOSE 113 mg/dL (70-99); POTASSIUM 3.8 MEQ/L (3.7-5.4); SODIUM 146 MEQ/L (136-147); TOTAL PROTEIN 5.4 G/DL (6.4-8.3); UREA NITROGEN (BUN) 27 mg/dL (9-23)
[2017-06-23 06:32] LABS: TOTAL BILIRUBIN 0.3 MG/DL (0.0-1.0)
[2017-06-23 07:56] VITALS: BP 177/76
[2017-06-23 12:05] VITALS: BP 175/90
[2017-06-23 16:16] VITALS: BP 194/92
[2017-06-23 19:45] VITALS: BP 128/84
[2017-06-23 23:30] VITALS: BP 161/75
[2017-06-24 06:50] VITALS: BP 146/86
[2017-06-24 14:50] VITALS: BP 172/81
[2017-06-24 17:30] VITALS: BP 160/62
[2017-06-25 00:38] VITALS: BP 126/64
[2017-06-25 07:00] VITALS: BP 162/78
[2017-06-25 15:55] VITALS: BP 173/78
[2017-06-25 18:32] VITALS: BP 166/72
[2017-06-25 23:29] VITALS: BP 178/84
[2017-06-26 05:41] LABS: HEMATOCRIT 33.4 % (38.0-50.0); HEMOGLOBIN 10.7 G/DL (12.5-16.6); MCH 26.4 PG (29.0-34.0); MCV 82.5 FL (86-99); PLATELET COUNT 153 K/uL (156-360); RBC DIS.WIDTH-CV 15.8 % (11.8-14.6); RED BLOOD COUNT 4.05 M/uL (4.00-5.50); WHITE BLOOD COUNT 10.5 K/uL (4.1-10.2)
[2017-06-26 06:10] LABS: ALBUMIN 2.1 G/DL (3.2-4.8); ALKALINE PHOSPHATASE 39 IU/L (3-129); ALT (GPT) 9 IU/L (3-49); AST (GOT) 14 IU/L (2-34); CHLORIDE 109 MEQ/L (99-109); CREATININE 1.3 MG/DL (0.6-1.3); GFR ESTIMATE (CALCULATED) 58 mL/min/ (58.99-99999); GLUCOSE 125 mg/dL (70-99); POTASSIUM 3.7 MEQ/L (3.7-5.4); SODIUM 143 MEQ/L (136-147); TOTAL BILIRUBIN 0.3 MG/DL (0.0-1.0); TOTAL PROTEIN 5.5 G/DL (6.4-8.3); UREA NITROGEN (BUN) 19 mg/dL (9-23)
[2017-06-26 07:38] VITALS: BP 158/60
[2017-06-26 16:26] VITALS: BP 174/68
[2017-06-26 22:53] VITALS: BP 186/85
[2017-06-27 07:36] VITALS: BP 176/78
[2017-06-27 14:09] VITALS: BP 148/78
[2017-06-27 16:10] VITALS: BP 168/81
[2017-06-27] MEDS ORDERED: VANCOCIN HCL125 MG PO (16:53)
[2017-06-27] MEDS ORDERED: SPIRIVA RESPIMAT4 GM IH (17:02)
[2017-06-27] MEDS ORDERED: DIGOXIN125 MCG PO (17:02)
[2017-06-27] MEDS ORDERED: K-DUR20 MEQ PO (17:03)
[2017-06-27] MEDS ORDERED: LOPRESSOR25 MG PO (17:03)
[2017-06-27] MEDS ORDERED: FLORASTOR250 MG PO (17:03)
[2017-06-27] MEDS ORDERED: FLUOXETINE HCL10 MG PO (17:03)
[2017-06-27] MEDS ORDERED: PROCRIT10000 UNI1 IM (17:12)
[2017-06-28 00:47] VITALS: BP 150/60
[2017-06-28 07:54] VITALS: BP 149/67
== END 2017-06-28 09:00 | DRG 871 ==
LOC: EME 16:39 → 4WEST 21:33 → EDOF 21:33 → ENRESERV 21:34 → 4WEST 22:55 → ENRESERV 06-20 09:10 → 5EAST 06-20 13:23
PROVIDERS: Family Medicine; Internal Medicine; Internal Medicine Critical Care Medicine; Obstetrics & Gynecology; Physician Assistant; Specialist
DX: A41.9 Sepsis, unspecified organism (principal); R65.20 Severe sepsis without septic shock; J96.22 Acute and chronic respiratory failure with hypercapnia; J96.21 Acute and chronic respiratory failure with hypoxia; J18.9 Pneumonia, unspecified organism; Y95 Nosocomial condition; A04.72 Enterocolitis due to Clostridium difficile, not specified as recurrent; N17.9 Acute kidney failure, unspecified; N39.0 Urinary tract infection, site not specified; B96.20 Unspecified Escherichia coli [E. coli] as the cause of diseases classified elsewhere; Z16.12 Extended spectrum beta lactamase (ESBL) resistance; L89.623 Pressure ulcer of left heel, stage 3; D63.1 Anemia in chronic kidney disease; I13.0 Hypertensive heart and chronic kidney disease with heart failure and stage 1 through stage 4 chronic kidney disease, or unspecified chronic kidney disease; E11.22 Type 2 diabetes mellitus with diabetic chronic kidney disease; N18.4 Chronic kidney disease, stage 4 (severe); I50.32 Chronic diastolic (congestive) heart failure; L03.116 Cellulitis of left lower limb; J44.1 Chronic obstructive pulmonary disease with (acute) exacerbation; J44.0 Chronic obstructive pulmonary disease with (acute) lower respiratory infection; I87.2 Venous insufficiency (chronic) (peripheral); I87.8 Other specified disorders of veins; I89.0 Lymphedema, not elsewhere classified; E87.2 Acidosis; I95.9 Hypotension, unspecified; Z99.81 Dependence on supplemental oxygen; I48.0 Paroxysmal atrial fibrillation; E11.51 Type 2 diabetes mellitus with diabetic peripheral angiopathy without gangrene; E66.01 Morbid (severe) obesity due to excess calories; Z68.41 Body mass index [BMI] 40.0-44.9, adult; E78.5 Hyperlipidemia, unspecified; G43.909 Migraine, unspecified, not intractable, without status migrainosus; H40.9 Unspecified glaucoma; K21.9 Gastro-esophageal reflux disease without esophagitis; R32 Unspecified urinary incontinence; F41.9 Anxiety disorder, unspecified; F32.9 Major depressive disorder, single episode, unspecified; F10.11 Alcohol abuse, in remission; Z80.0 Family history of malignant neoplasm of digestive organs; Z87.891 Personal history of nicotine dependence
CPT/HCPCS: 36600; 71045; 80048; 80048 91; 80053; 81003; 82803; 82948; 83605; 83880; 84100; 84484; 85025; 85025 91; 85027; 87040; 87070; 87077; 87086; 87147; 87186; 87205; 87493; 87502; 87641; 94002; 94003; 94010; 94640; 94640 76; 94660; 94667; 94760; 94799; 97530 GP; 99202; 99281; 99285; C1769; J0360; J0610; J1160; J1335; J1644; J1815; J2020; J2405; J2543; J2704; J3010; J7030; J7040; J7050; S0028

== ENCOUNTER 2017-07-03 01:33 | Inpatient (IN) | payer OTHER ==
[~2017-07-03] VITALS: Ht 188 cm; Wt 140.1 kg
[~2017-07-03 01:33] MED LIST changes: +BIOTENE1000 ML MM; +CLARITIN10 M3 PO; +DIGOXIN125 MCG PO; +FLORASTOR250 MG PO; +FLUOXETINE HCL10 MG PO; +GLUCAGEN1 M1 IM; +HEPARIN LO100 UNIT/7 IV; +HUMALOG100 UNIT/2 SC; +K-DUR20 MEQ PO; +LEVEMIR FL100 UNIT/1 SC; +LOPRESSOR25 MG PO; +MAALOX ADVANCE355 ML PO; +PROCRIT10000 UNI1 IM; +PROCRIT10000 UNI1 IV; +SPIRIVA RESPIMAT4 GM IH; +VANCOCIN HCL125 MG PO
[2017-07-03 02:45] LABS: BASOPHIL (%) 0.4 % (0-1); EOSINOPHIL COUNT 0.6 K/uL (0-0.3); HEMOGLOBIN 9.6 G/DL (12.5-16.6); LYMPHOCYTE (%) 21.3 % (15-42); LYMPHOCYTE COUNT 2.1 K/uL (1.0-2.8); MCH 27.4 PG (29.0-34.0); MCV 85.5 FL (86-99); MONOCYTE (%) 13.9 % (3-12); MONOCYTE COUNT 1.4 K/uL (0-0.8); NEUTROPHIL (%) 56.4 % (45-76); NEUTROPHIL COUNT 5.6 K/uL (1.8-6.4); PLATELET COUNT 132 K/uL (156-360); RBC DIS.WIDTH-CV 16.2 % (11.8-14.6); RBC DIS.WIDTH-SD 49.7 % (39-53); RED BLOOD COUNT 3.51 M/uL (4.00-5.50); WHITE BLOOD COUNT 9.9 K/uL (4.1-10.2)
[2017-07-03 02:57] LABS: ALBUMIN 2.2 g/dL (3.2-4.8); CHLORIDE 106 mEq/L (99-109); POTASSIUM 5.1 mEq/L (3.7-5.4); SODIUM 142 mEq/L (136-147)
[2017-07-03 02:58] LABS: MAGNESIUM 1.5 mg/dL (1.3-2.7)
[2017-07-03 03:00] LABS: GLUCOSE 92 mg/dL (70-99); TOTAL PROTEIN 6.3 g/dL (6.4-8.3)
[2017-07-03 03:02] LABS: TOTAL BILIRUBIN 0.4 mg/dL (0.0-1.0)
[2017-07-03 03:03] LABS: ALKALINE PHOSPHATASE 73 IU/L (3-129); CREATININE 2.2 mg/dL (0.6-1.3); GFR ESTIMATE (CALCULATED) 32 mL/min/ (58.99-99999)
[2017-07-03 03:04] LABS: UREA NITROGEN (BUN) 34 mg/dL (9-23)
[2017-07-03 03:05] LABS: AST (GOT) 13 IU/L (2-34)
[2017-07-03 03:06] LABS: ALT (GPT) 9 IU/L (3-49); CREATINE KINASE 21 IU/L (1-294); TOTAL CK 21 IU/L (1-294)
[2017-07-03 03:12] LABS: TROP-I INTERPRETATION NEGATIVE; TROPONIN-I 0.03 ng/mL (0.0-0.30)
[2017-07-03 03:14] LABS: CK-MB 1.1 ng/mL (0.0-4.9); CKMB RELATIVE INDEX 5.2 (0.0-3.9)
[2017-07-03 03:15] LABS: DIGOXIN 0.4 ng/mL (0.8-2.0)
[2017-07-03 07:25] VITALS: BP 142/65
[2017-07-03 10:46] VITALS: BP 138/72
[2017-07-03 15:55] VITALS: BP 134/80
[2017-07-03 16:58] LABS: BASE EXCESS 2.1 mEq/L (-3 to +3); METHEMOGLOBIN 1.1 % (0-1.5); pH 7.36 (7.35-7.45)
[2017-07-03 16:59] LABS: BICARBONATE 28.2 mEq/L (22-26); COMMENTS - BLOOD GASES A+C+; DEVICE NC; O2 FLOW 3 L/MIN; PCO2 50 mm Hg (35-45); PO2 70 mm Hg (80-100); SITE RR
[2017-07-03 21:12] VITALS: BP 141/76
[2017-07-03 23:10] VITALS: BP 129/60
[2017-07-04 03:10] VITALS: BP 168/76
[2017-07-04 06:11] LABS: BASOPHIL (%) 0.3 % (0-1); EOSINOPHIL (%) 0 % (0-5); HEMATOCRIT 30.6 % (38.0-50.0); HEMOGLOBIN 9.8 G/DL (12.5-16.6); IMMATURE GRANULOCYTE (%) 1.8 % (0.0-0.7); LYMPHOCYTE COUNT 0.7 K/uL (1.0-2.8); MCH 27.1 PG (29.0-34.0); MCV 84.5 FL (86-99); MONOCYTE COUNT 0.2 K/uL (0-0.8); NEUTROPHIL (%) 88.9 % (45-76); NEUTROPHIL COUNT 9.4 K/uL (1.8-6.4); PLATELET COUNT 165 K/uL (156-360); RBC DIS.WIDTH-CV 15.6 % (11.8-14.6); RBC DIS.WIDTH-SD 47.3 % (39-53); RED BLOOD COUNT 3.62 M/uL (4.00-5.50); WHITE BLOOD COUNT 10.6 K/uL (4.1-10.2)
[2017-07-04 06:36] LABS: CHLORIDE 105 MEQ/L (99-109); CREATININE 2.1 MG/DL (0.6-1.3); GFR ESTIMATE (CALCULATED) 34 mL/min/ (58.99-99999); POTASSIUM 5.7 MEQ/L (3.7-5.4); SODIUM 140 MEQ/L (136-147); UREA NITROGEN (BUN) 36 mg/dL (9-23)
[2017-07-04 06:37] LABS: GLUCOSE 225 mg/dL (70-99)
[2017-07-04 10:26] VITALS: BP 135/63
[2017-07-04 12:46] VITALS: BP 138/62
[2017-07-04 16:51] VITALS: BP 122/59
[2017-07-04 20:01] VITALS: BP 133/69
[2017-07-05] VITALS (9 sets, daily range): BP systolic 128–192; BP diastolic 62–85
[2017-07-06 03:37] VITALS: BP 163/67
[2017-07-06 05:55] LABS: CHLORIDE 103 MEQ/L (99-109); CREATININE 1.7 MG/DL (0.6-1.3); GFR ESTIMATE (CALCULATED) 43 mL/min/ (58.99-99999); GLUCOSE 234 mg/dL (70-99); POTASSIUM 4.9 MEQ/L (3.7-5.4); SODIUM 138 MEQ/L (136-147); UREA NITROGEN (BUN) 42 mg/dL (9-23)
[2017-07-06 09:28] VITALS: BP 162/82
[2017-07-06 16:13] VITALS: BP 143/67
[2017-07-06 19:27] VITALS: BP 141/67
[2017-07-07 00:11] VITALS: BP 148/66
[2017-07-07 03:21] VITALS: BP 139/69
[2017-07-07 07:39] VITALS: BP 142/68
[2017-07-07 11:46] VITALS: BP 148/70
[2017-07-07 15:58] VITALS: BP 147/71
[2017-07-07 20:03] VITALS: BP 164/77
[2017-07-08 00:09] VITALS: BP 155/60
[2017-07-08 04:52] VITALS: BP 150/62
[2017-07-08 06:43] LABS: CHLORIDE 102 MEQ/L (99-109); CREATININE 1.4 MG/DL (0.6-1.3); GFR ESTIMATE (CALCULATED) 54 mL/min/ (58.99-99999); GLUCOSE 134 mg/dL (70-99); POTASSIUM 4.5 MEQ/L (3.7-5.4); SODIUM 136 MEQ/L (136-147); UREA NITROGEN (BUN) 38 mg/dL (9-23)
[2017-07-08 08:03] VITALS: BP 157/72
[2017-07-08] MEDS ORDERED: VANCOCIN HCL125 MG PO (10:45)
[2017-07-08] MEDS ORDERED: PREDNISONE10 MG PO (10:50)
[2017-07-08 11:34] VITALS: BP 152/68
[2017-07-08 15:32] VITALS: BP 165/75
== END 2017-07-08 16:22 | DRG 190 ==
LOC: EME → EDBD 01:33 → EME 01:33 → EDOF 05:56 → 2EAST 05:56 → ENRESERV 06:05 → 2EAST 07:18 → ENRESERV 07-05 21:06 → 3EAST 07-05 21:36
PROVIDERS: Emergency Medicine; Internal Medicine
DX: J44.1 Chronic obstructive pulmonary disease with (acute) exacerbation (principal); J98.11 Atelectasis; J96.11 Chronic respiratory failure with hypoxia; I13.0 Hypertensive heart and chronic kidney disease with heart failure and stage 1 through stage 4 chronic kidney disease, or unspecified chronic kidney disease; I50.32 Chronic diastolic (congestive) heart failure; A04.72 Enterocolitis due to Clostridium difficile, not specified as recurrent; E11.22 Type 2 diabetes mellitus with diabetic chronic kidney disease; N18.3 Chronic kidney disease, stage 3 (moderate); L89.623 Pressure ulcer of left heel, stage 3; L89.312 Pressure ulcer of right buttock, stage 2; L89.322 Pressure ulcer of left buttock, stage 2; E11.51 Type 2 diabetes mellitus with diabetic peripheral angiopathy without gangrene; I87.2 Venous insufficiency (chronic) (peripheral); L30.8 Other specified dermatitis; I89.0 Lymphedema, not elsewhere classified; K21.9 Gastro-esophageal reflux disease without esophagitis; G43.909 Migraine, unspecified, not intractable, without status migrainosus; E78.5 Hyperlipidemia, unspecified; F41.9 Anxiety disorder, unspecified; F32.9 Major depressive disorder, single episode, unspecified; E66.2 Morbid (severe) obesity with alveolar hypoventilation; Z79.4 Long term (current) use of insulin; Z79.891 Long term (current) use of opiate analgesic; Z88.1 Allergy status to other antibiotic agents; Z88.2 Allergy status to sulfonamides; Z88.6 Allergy status to analgesic agent; Z87.891 Personal history of nicotine dependence; Z88.0 Allergy status to penicillin; Z68.41 Body mass index [BMI] 40.0-44.9, adult
CPT/HCPCS: 36415; 36600; 71045; 71046; 80048; 80053; 80162; 82550; 82553; 82803; 82948; 83735; 83880; 84484; 85025; 93005; 93306; 94640; 94640 76; 94660; 94667; 94668; 94799; 99202; 99281; 99285; A6260; J0692; J1650; J1815; J2405; J2920; J7512

== ENCOUNTER 2017-07-25 18:25 | Inpatient (IN) | payer OTHER ==
[~2017-07-25] VITALS: Ht 188 cm; Wt 147.5 kg
[2017-07-25 19:39] LABS: ALBUMIN 1.9 g/dL (3.2-4.8); CHLORIDE 103 mEq/L (99-109); POTASSIUM 5.2 mEq/L (3.7-5.4); SODIUM 132 mEq/L (136-147)
[2017-07-25 19:40] LABS: MAGNESIUM 1.7 mg/dL (1.3-2.7)
[2017-07-25 19:43] LABS: INTER. NORMALIZED RATIO 1.1; TOTAL BILIRUBIN 0.5 mg/dL (0.0-1.0)
[2017-07-25 19:45] LABS: ALKALINE PHOSPHATASE 129 IU/L (3-129); GFR ESTIMATE (CALCULATED) 12 mL/min/ (58.99-99999)
[2017-07-25 19:46] LABS: PTT 24.8 SEC (25-37); UREA NITROGEN (BUN) 77 mg/dL (9-23)
[2017-07-25 19:47] LABS: AST (GOT) 39 IU/L (2-34)
[2017-07-25 19:49] LABS: TROP-I INTERPRETATION NEGATIVE; TROPONIN-I 0.14 ng/mL (0.0-0.30)
[2017-07-25 19:53] LABS: GLUCOSE 163 mg/dL (70-99)
[2017-07-25 19:55] LABS: ALT (GPT) 20 IU/L (3-49)
[2017-07-25 20:00] LABS: HEMOGLOBIN 11.1 G/DL (12.5-16.6); MCH 27.3 PG (29.0-34.0); MCHC 31.7 G/DL (30.0-36.0); NRBC (%) 0.2 /100 WBC (0-0); RBC DIS.WIDTH-CV 17.2 % (11.8-14.6); RBC DIS.WIDTH-SD 53.4 % (39-53); RED BLOOD COUNT 4.07 M/uL (4.00-5.50)
[2017-07-25 20:01] LABS: WHITE BLOOD COUNT 61.7 K/uL (4.1-10.2)
[2017-07-25 20:25] LABS: COMMENTS - BLOOD GASES C+; DEVICE NC; O2 FLOW 3 L/MIN; SITE RR
[2017-07-25 20:26] LABS: PCO2 35 mm Hg (35-45); PO2 65 mm Hg (80-100); pH 7.23 (7.35-7.45)
[2017-07-25 20:27] LABS: BASE EXCESS -11.9 mEq/L (-3 to +3); BICARBONATE 14.7 mEq/L (22-26); METHEMOGLOBIN 1.5 % (0-1.5)
[2017-07-25] MEDS ORDERED: SILTUSSIN DM C473 ML PO (20:30)
[2017-07-25] MEDS ORDERED: VANCOMYCIN HCL250 MG PO (20:31)
[2017-07-25] MEDS ORDERED: SPIRIVA RESPIMAT4 GM IH (20:36)
[2017-07-25] MEDS ORDERED: METOPROLOL TART25 MG PO (20:37)
[2017-07-25] MEDS ORDERED: FLUOXETINE HCL40 MG PO (20:38)
[2017-07-25] MEDS ORDERED: PREDNISONE10 MG PO (20:39)
[2017-07-25] MEDS ORDERED: CALCIUM 600 +1 EAC9 PO (20:42)
[2017-07-25] MEDS ORDERED: BISAC-EVAC10 MG PR (20:47)
[2017-07-25] MEDS ORDERED: MILK OF MAGN PO (20:47)
[2017-07-25] MEDS ORDERED: FLEET ENEMA-AD118 ML PR (20:48)
[2017-07-25] MEDS ORDERED: TRAZODONE HCL50 MG PO (20:49)
[2017-07-25 21:33] LABS: LIPASE < 3.0 U/L (1.0-51.0)
[2017-07-25 21:35] LABS: DIGOXIN < 0.3 ng/mL (0.8-2.0)
[2017-07-25 22:27] LABS: ABS NEUTROPHIL COUNT 53.7; ANISOCYTOSIS 1+; BURR CELLS 2+; EOSINOPHIL ABS CT 0; LYMPHOCYTES 2.9 % (15.0-45.0); MACROCYTES 1+; METAMYELOCYTES 3.8 %; MONOCYTES 4.2 % (0-9.0); MYELOCYTES 2.1 %; OVALOCYTES 1+; PLATELET CLUMPS PRESENT - PLATELET COUNTS APPEARS DECREASED; PLATELET COUNT 343 K/uL (156-360); POIKILOCYTOSIS 3+; POLYCHROMASIA 1+; SPHEROCYTES 1+; TOXIC GRANULATION 1+
[2017-07-25 22:28] LABS: BAND NEUTROPHILS 61.9 % (0-8.0); SEG.NEUTROPHILS 25.1 % (46.0-76.0)
[2017-07-26] VITALS: BP 90/64
[2017-07-26 01:00] VITALS: BP 78/63
[2017-07-26 01:14] LABS: HEMATOCRIT 35.8 % (38.0-50.0); HEMOGLOBIN 11.2 G/DL (12.5-16.6); MCH 27.3 PG (29.0-34.0); MCHC 31.3 G/DL (30.0-36.0); MCV 87.1 FL (86-99); NRBC (%) 0.3 /100 WBC (0-0); PLATELET COUNT 309 K/uL (156-360); RBC DIS.WIDTH-CV 17.2 % (11.8-14.6); RBC DIS.WIDTH-SD 54.6 % (39-53); RED BLOOD COUNT 4.11 M/uL (4.00-5.50); WHITE BLOOD COUNT 79.1 K/uL (4.1-10.2)
[2017-07-26 01:19] LABS: CHLORIDE 110 mEq/L (99-109); POTASSIUM 5.1 mEq/L (3.7-5.4); SODIUM 137 mEq/L (136-147)
[2017-07-26 01:21] LABS: GLUCOSE 179 mg/dL (70-99)
[2017-07-26 01:25] LABS: CREATININE 4.8 mg/dL (0.6-1.3); GFR ESTIMATE (CALCULATED) 13 mL/min/ (58.99-99999)
[2017-07-26 01:26] LABS: UREA NITROGEN (BUN) 76 mg/dL (9-23)
[2017-07-26 01:32] LABS: SITE ALINE
[2017-07-26 01:33] LABS: BASE EXCESS -16 mEq/L (-3 to +3); BICARBONATE 10.6 mEq/L (22-26); CARBOXY HGB 2.2 % (0-5); COMMENTS - BLOOD GASES C+; DEVICE NC; METHEMOGLOBIN 1.3 % (0-1.5); O2 FLOW 4 L/MIN; PCO2 27 mm Hg (35-45); PO2 63 mm Hg (80-100); TOTAL RESP RATE 18 resp/min
[2017-07-26 01:58] LABS: ABS NEUTROPHIL COUNT 66.1; ANISOCYTOSIS 2+; BURR CELLS 3+; EOSINOPHIL ABS CT 0.7; EOSINOPHILS 0.9 % (0-5.0); LYMPHOCYTES 1.3 % (15.0-45.0); MACROCYTES 2+; METAMYELOCYTES 5.3 %; MONOCYTES 2.7 % (0-9.0); MYELOCYTES 6.2 %; PLAT.SUFFICIENCY ADEQUATE; POIKILOCYTOSIS 3+; POLYCHROMASIA 2+; SPHEROCYTES 1+
[2017-07-26 02:00] VITALS: BP 92/55
[2017-07-26 02:06] LABS: LDL CHOLESTEROL 86 mg/dL (Desirable<100); NON-HDL CHOLESTEROL 156 mg/dL (Desirable<160); TOTAL CHOLESTEROL 162 mg/dL (Desirable<200); TRIGLYCERIDES 350 MG/DL (Normal: <150)
[2017-07-26 02:07] LABS: HDL CHOLESTEROL 6 MG/DL (Desirable>=40)
[2017-07-26 03:00] VITALS: BP 85/55
[2017-07-26 04:00] VITALS: BP 79/52
[2017-07-26 05:19] LABS: HEMATOCRIT 38.6 % (38.0-50.0); HEMOGLOBIN 11.4 G/DL (12.5-16.6); MCH 26.6 PG (29.0-34.0); MCHC 29.5 G/DL (30.0-36.0); NRBC (%) 0.5 /100 WBC (0-0); PLATELET COUNT 305 K/uL (156-360); RBC DIS.WIDTH-CV 17.4 % (11.8-14.6); RBC DIS.WIDTH-SD 57.4 % (39-53); RED BLOOD COUNT 4.29 M/uL (4.00-5.50)
[2017-07-26 05:22] LABS: INTER. NORMALIZED RATIO 1.2
[2017-07-26 05:25] LABS: PTT 32.4 SEC (25-37)
[2017-07-26 05:36] LABS: ALKALINE PHOSPHATASE 132 IU/L (3-129); ALT (GPT) 22 IU/L (3-49); AST (GOT) 54 IU/L (2-34); CHLORIDE 108 MEQ/L (99-109); CREATININE 4.8 MG/DL (0.6-1.3); GFR ESTIMATE (CALCULATED) 13 mL/min/ (58.99-99999); GLUCOSE 246 mg/dL (70-99); MAGNESIUM 1.8 mg/dl (1.3-2.7); PHOSPHORUS 8.6 mg/dL (2.5-4.9); POTASSIUM 5.5 MEQ/L (3.7-5.4); SODIUM 135 MEQ/L (136-147); TOTAL BILIRUBIN 0.4 MG/DL (0.0-1.0); TOTAL PROTEIN 4.1 G/DL (6.4-8.3); UREA NITROGEN (BUN) 68 mg/dL (9-23)
[2017-07-26 05:39] LABS: ALBUMIN < 1.5 G/DL (3.2-4.8)
[2017-07-26 06:01] LABS: COMMENTS - BLOOD GASES C+; DEVICE NC; O2 FLOW 4 L/MIN; PCO2 39 mm Hg (35-45); SITE ALINE; TOTAL RESP RATE 20 resp/min; pH 6.94 (7.35-7.45)
[2017-07-26 06:02] LABS: BASE EXCESS -22.8 mEq/L (-3 to +3); BICARBONATE 8.4 mEq/L (22-26); CARBOXY HGB 1.9 % (0-5); METHEMOGLOBIN 2.1 % (0-1.5); PO2 63 mm Hg (80-100)
[2017-07-26 06:54] LABS: COMMENTS - BLOOD GASES C+; DEVICE 840 VENT; FI02 100 %; MECHANICAL RATE 28 resp/min; MODE AC VC+; PCO2 34 mm Hg (35-45); PEEP 5 CM/H20; SITE ALINE; TIDAL VOLUME 400 ML; TOTAL RESP RATE 35 resp/min; pH 6.91 (7.35-7.45)
[2017-07-26 06:55] LABS: BASE EXCESS -24.7 mEq/L (-3 to +3); BICARBONATE 6.8 mEq/L (22-26); CARBOXY HGB 1.8 % (0-5); METHEMOGLOBIN 1.6 % (0-1.5); PO2 235 mm Hg (80-100)
[2017-07-27] VITALS: BP 99/56
[2017-07-29 07:10] LABS: HEMOGLOBIN A1c (GLYCOHEMOGLOB) 6.5 % (Below 5.7)
== END 2017-07-26 13:02 | DRG 871 ==
LOC: EME 18:25 → EDOF 21:35 → 4WEST 21:35 → ENRESERV 21:39 → 4WEST 23:42
PROVIDERS: Emergency Medicine; Specialist
DX: A41.9 Sepsis, unspecified organism (principal); A04.72 Enterocolitis due to Clostridium difficile, not specified as recurrent; J96.00 Acute respiratory failure, unspecified whether with hypoxia or hypercapnia; R65.21 Severe sepsis with septic shock; I13.0 Hypertensive heart and chronic kidney disease with heart failure and stage 1 through stage 4 chronic kidney disease, or unspecified chronic kidney disease; I50.32 Chronic diastolic (congestive) heart failure; N18.4 Chronic kidney disease, stage 4 (severe); N17.9 Acute kidney failure, unspecified; J44.1 Chronic obstructive pulmonary disease with (acute) exacerbation; E87.2 Acidosis; E86.0 Dehydration; E11.22 Type 2 diabetes mellitus with diabetic chronic kidney disease; E11.51 Type 2 diabetes mellitus with diabetic peripheral angiopathy without gangrene; E11.621 Type 2 diabetes mellitus with foot ulcer; L97.429 Non-pressure chronic ulcer of left heel and midfoot with unspecified severity; I48.91 Unspecified atrial fibrillation; E78.5 Hyperlipidemia, unspecified; K21.9 Gastro-esophageal reflux disease without esophagitis; G47.33 Obstructive sleep apnea (adult) (pediatric); I87.2 Venous insufficiency (chronic) (peripheral); I87.8 Other specified disorders of veins; D64.9 Anemia, unspecified; Z66 Do not resuscitate; E66.01 Morbid (severe) obesity due to excess calories; Z68.41 Body mass index [BMI] 40.0-44.9, adult; Z79.52 Long term (current) use of systemic steroids; Z87.891 Personal history of nicotine dependence; Z79.4 Long term (current) use of insulin
CPT/HCPCS: 36600; 36620; 70450; 71045; 74018; 74176; 80048 91; 80053; 80061; 80162; 81003; 82803; 83036; 83605; 83690; 83735; 83880; 84100; 84484; 85007; 85025; 85025 91; 85610; 85730; 87040; 87070; 87077; 87186; 87205; 87641; 93005; 94002; 94640; 94799; 99202; 99281; 99285; J0692; J1644; J1720; J2370; J3370; J7030; J7040; J7050; S0030